=== PATIENT | male | born 1955 | race Hispanic/Latino ===

== ENCOUNTER 2017-10-26 10:56 | Emergency (ER) | payer OTHER ==
[~2017-10-26 10:56] MED LIST: ALLO300T2 PO; ATOR40TA71 PO; GLIP5TAB11 PO; LISI1TAB13 PO; METF500T6 PO
[2017-10-26] MEDS ORDERED: METHYLPREDNISOLONE SOD SUCC 40MG/ML 1ML ONE (11:43)
[2017-10-26 11:52] LABS: BASOPHILS % (AUTO) 0.5 % (0.0-5.0); EOSINOPHILS % (AUTO) 2.7 % (0.0-8.0); HEMATOCRIT 33.9 % (42-54); LYMPHOCYTES % (AUTO) 14.1 % (21.0-51.0); MEAN CORPUSCULAR HEMOGLOBIN 30.3 pg (27.0-33.0); MEAN CORPUSCULAR HGB CONC 33.5 g/dL (32.0-36.0); MEAN CORPUSCULAR VOLUME 90.6 fL (79-99); MONOCYTES % (AUTO) 9.6 % (3.0-13.0); NEUTROPHILS % (AUTO) 73.1 % (40.0-77.0); PLATELET COUNT (AUTO) 229 K/uL (130-400); RED BLOOD CELL COUNT(AUTO) 3.74 MIL/uL (4.50-6.20); RED CELL DISTRIBUTION WIDTH 15.5 % (11.0-15.5); WHITE BLOOD COUNT (AUTO) 9.1 K/uL (4.8-10.8)
[2017-10-26 12:04] LABS: CREATININE 1.8 mg/dL (0.5-1.5)
[2017-10-26 12:09] LABS: ALBUMIN 3.9 g/dL (3.5-5.0); BILIRUBIN,TOTAL 0.4 mg/dL (0.2-1.0); TOTAL PROTEIN, SERUM 7.6 g/dL (6.0-8.3)
[2017-10-26] MEDS ORDERED: IPRATROPIUM/ALBUTEROL SULFATE 3 ML SOLUTION IH ONE (12:26)
== END 2017-10-26 14:57 | disposition home or self-care (01) ==
LOC: EDH 10:56
DX: J45.41 Moderate persistent asthma with (acute) exacerbation (principal); E11.9 Type 2 diabetes mellitus without complications; I10 Essential (primary) hypertension; J45.909 Unspecified asthma, uncomplicated; Z98.890 Other specified postprocedural states
CPT/HCPCS: 36415; 71046; 80053; 85025; 87804 ×2; 94640; 96374; 99285; J2920

== ENCOUNTER 2017-10-29 23:36 | Emergency (ER) | payer OTHER ==
[2017-10-29] MEDS ORDERED: IPRATROPIUM/ALBUTEROL SULFATE 3 ML SOLUTION IH ONE (23:51)
[2017-10-30 00:03] LABS: RAPID GROUP A STREP NEGATIVE (NEGATIVE)
[2017-10-30] MEDS ORDERED: AZITHROMYCIN 250 MG TABLET PO ONE (01:45)
[2017-10-30] MEDS ORDERED: OSELTAMIVIR PHOSPHATE 75 MG CAP ONE (01:46)
[2017-10-30] MEDS ORDERED: IPRATROPIUM/ALBUTEROL SULFATE 3 ML SOLUTION IH ONE (01:51)
== END 2017-10-30 02:25 | disposition home or self-care (01) ==
LOC: EDH 23:36
DX: J20.9 Acute bronchitis, unspecified (principal); J45.909 Unspecified asthma, uncomplicated; J09.X2 Influenza due to identified novel influenza A virus with other respiratory manifestations; I10 Essential (primary) hypertension; E11.9 Type 2 diabetes mellitus without complications
CPT/HCPCS: 71046; 87804; 87880; 94640

== ENCOUNTER 2017-10-30 03:42 | Inpatient (IN) | payer OTHER ==
[~2017-10-30] VITALS: Ht 170.2 cm; Wt 100.8 kg
[2017-10-30] VITALS (9 sets, daily range): BP systolic 103–154; BP diastolic 50–83
[2017-10-30] MEDS ORDERED: IPRATROPIUM/ALBUTEROL SULFATE 3 ML SOLUTION IH ONE (03:55)
[2017-10-30] MEDS ORDERED: METHYLPREDNISOLONE SOD SUCC 125MG/2ML VIAL ONE (04:06)
[2017-10-30] MEDS ORDERED: SODIUM CHLORIDE 0.9% 1000ML 2,000 ML IV ONE (04:06)
[2017-10-30 04:14] LABS: BASOPHILS % (AUTO) 0.1 % (0.0-5.0); HEMATOCRIT 37.3 % (42-54); LYMPHOCYTES % (AUTO) 8.9 % (21.0-51.0); MEAN CORPUSCULAR HEMOGLOBIN 29.2 pg (27.0-33.0); MEAN CORPUSCULAR HGB CONC 32.8 g/dL (32.0-36.0); MEAN CORPUSCULAR VOLUME 89.1 fL (79-99); MONOCYTES % (AUTO) 6.6 % (3.0-13.0); NEUTROPHILS % (AUTO) 84.4 % (40.0-77.0); PLATELET COUNT (AUTO) 289 K/uL (130-400); RED BLOOD CELL COUNT(AUTO) 4.19 MIL/uL (4.50-6.20); RED CELL DISTRIBUTION WIDTH 15.3 % (11.0-15.5)
[2017-10-30 04:24] LABS: CARBON DIOXIDE 23 mmol/L (21-32); CHLORIDE 99 mmol/L (101-111); GLOMERULAR FILTR. RATE CALC 36 mL/min (>60); GLUCOSE,RANDOM 158 mg/dL (70-105); POTASSIUM 3.8 mmol/L (3.5-5.1); SODIUM SERUM 137 mmol/L (136-145); UREA NITROGEN, BLOOD 37 mg/dL (7-18)
[2017-10-30 04:39] LABS: ALANINE AMINOTRANSFERASE 33 U/L (12-78); ALBUMIN 3.9 g/dL (3.5-5.0); ASPARTATE AMINOTRANSFERASE 21 U/L (10-37); BILIRUBIN,TOTAL 0.3 mg/dL (0.2-1.0); CREATINE KINASE, TOTAL 187 U/L (21-232); MYOGLOBIN 113 ng/mL (10-92); TOTAL PROTEIN, SERUM 7.7 g/dL (6.0-8.3); TROPONIN I < 0.04 ng/mL (0.00-0.06)
[2017-10-30] MEDS ORDERED: ALBUTEROL SULFATE 0.083% 2.5 MG/3 ML INH IH ONE ×2 (04:54→11:30)
[2017-10-30 05:00] LABS: INR 0.9 (0.85-1.15); PARTIAL THROMBOPLASTIN TIME 23.2 SEC (26.3-35.5); PROTHROMBIN TIME 9.5 SEC (9.6-11.6)
[2017-10-30 05:45] LABS: ABG BASE EXCESS -4.6 mmol/L (-2.0-3.0); ABG HCO3 18.2 mmol/L (21.0-28.0); ABG OXYGEN SATURATION 88.2 % (95.0-99.0); ABG PCO2 28 mmHg (35-48)
[2017-10-30] MEDS ORDERED: DiphenhydrAMINE HCL 50 MG/ML VIAL ONE (05:53)
[2017-10-30] MEDS ORDERED: ONDANSETRON HCL 4 MG/2 ML VIAL ONE (05:53)
[2017-10-30] MEDS ORDERED: MORPHINE SULFATE 4 MG/1ML SYG ONE (06:58)
[2017-10-30] MEDS ORDERED: CEFTRIAXONE SODIUM 1 GM ONE (07:51)
[2017-10-30] MEDS ORDERED: KETOROLAC TROMETHAMINE 30MG/ML ONE (07:52)
[2017-10-30] MEDS ORDERED: SODIUM CHLORIDE 0.9% 1000ML 1,000 ML IV ONE (09:21)
[2017-10-30] MEDS ORDERED: POTASSIUM CHLORIDE 20MEQ/100ML 100 ML IV ONE (09:22)
[2017-10-30] MEDS ORDERED: METHYLPREDNISOLONE SOD SUCC 40MG/ML 1ML ONE (11:12)
[2017-10-30] MEDS ORDERED: IPRATROPIUM 0.5 MG/2.5 ML INH IH ONE (11:30)
[2017-10-30] MEDS ORDERED: ETOMIDATE 2 MG/ML 10 ML VIAL IVP ONE (12:00)
[2017-10-30] MEDS ORDERED: ROCURONIUM BROMIDE 10MG/1ML 5ML VL IV ONE (12:00)
[2017-10-30] MEDS ORDERED: HYDROMORPHONE 1 MG/1 ML AMP ONE (13:37)
[2017-10-30] MEDS ORDERED: FAMOTIDINE/PF 20 MG/2 ML VIAL IV ONE (13:37)
[2017-10-30 14:10] LABS: APPEARANCE,URINE Clear (CLEAR); BILIRUBIN,URINE Negative (NEGATIVE); COLOR,URINE Yellow (YELLOW); GLUCOSE, URINE (UA) Negative (NEGATIVE); KETONES,URINE Negative (NEGATIVE); LEUKOCYTE ESTERASE ,URINE Negative (NEGATIVE); NITRATE,URINE Negative (NEGATIVE); OCCULT BLOOD,URINE Negative (NEGATIVE); PROTEIN,URINE Trace (NEGATIVE); UROBILINOGEN,URINE 0.2 mg/dL (0.2-1.0)
[2017-10-30 14:14] LABS: AMORPHOUS SEDIMENT,UR Few /LPF (None Seen); BACTERIA,URINE Rare /HPF (None Seen); RBC,URINE 0-1 /HPF (0-1); WBC,URINE None Seen /HPF (0-1)
[2017-10-30] MEDS ORDERED: POTASSIUM CHLORIDE 20 MEQ ERTAB PO PRN (15:30)
[2017-10-30] MEDS ORDERED: LIDOCAINE HCL-MPF 1% 2ML VIAL IVP PRN (15:30)
[2017-10-30] MEDS ORDERED: PHARMACY COMMUNICATION MISC SCH ×3 (15:30)
[2017-10-30] MEDS ORDERED: POTASSIUM CHLORIDE 10% ELIXIR 20 MEQ/15 ML UDCUP PO PRN (15:30)
[2017-10-30] MEDS: NS-20 MEQ KCL 1000ML 1,000 ML IV SCH (15:45)
[2017-10-30] MEDS ORDERED: DEXTROSE 50%-WATER 50 ML DISP.SYRIN IV PRN (15:45)
[2017-10-30] MEDS ORDERED: COMPOUND PO MISCELLANEOUS 1 EACH MISC MISC PRN (15:45)
[2017-10-30] MEDS ORDERED: GLUCAGON 1MG KIT 1 MG ML IM PRN (15:45)
[2017-10-30] MEDS: ZOSYN 3.375GM+NS 50ML 50 ML IV SCH ×2 (16:38→20:35)
[2017-10-30] MEDS: METHYLPREDNISOLONE SOD SUCC 40MG/ML 1ML IVP SCH ×2 (16:38→23:03)
[2017-10-30] MEDS: LEVOFLOXACIN 500 MG/D5W 100 ML 100 ML IV SCH (16:38)
[2017-10-30] MEDS: INSULIN LISPRO 100 UNIT/ML 3ML SQ SCH ×2 (16:39→22:12)
[2017-10-30] MEDS ORDERED: FUROSEMIDE 10 MG/ML 2ML VIAL IV SCH (17:15)
[2017-10-30] MEDS ORDERED: HYDRALAZINE HCL 20 MG/ML VIAL IV PRN (17:15)
[2017-10-30] MEDS: MORPHINE SULFATE 4 MG/1ML SYG IVP PRN (17:33)
[2017-10-30] MEDS ORDERED: BUDESONIDE 0.5 MG/2 ML INH IH ONE (18:10)
[2017-10-30] MEDS: IPRATROPIUM/ALBUTEROL SULFATE 3 ML SOLUTION IH SCH ×2 (18:26→22:02)
[2017-10-30] MEDS: BUDESONIDE 0.5 MG/2 ML INH IH SCH (18:50)
[2017-10-30] MEDS: SIMETHICONE 80 MG TAB.CHEW PO PRN (20:34)
[2017-10-30] MEDS: TRAMADOL HCL 50 MG TABLET PO PRN (20:34)
[2017-10-30] MEDS: OSELTAMIVIR SUSP 15 MG/ML (6 CAPS/29ML) PO SCH ×2 (20:35)
[2017-10-31] VITALS (23 sets, daily range): BP systolic 79–169; BP diastolic 31–114
[2017-10-31] MEDS: ACETAMINOPHEN 325 MG TAB PO PRN (00:48)
[2017-10-31] MEDS: IPRATROPIUM/ALBUTEROL SULFATE 3 ML SOLUTION IH SCH ×6 (01:30→23:29)
[2017-10-31] MEDS: NS-20 MEQ KCL 1000ML 1,000 ML IV SCH ×2 (02:46→18:25)
[2017-10-31] MEDS: ZOSYN 3.375GM+NS 50ML 50 ML IV SCH ×3 (05:28→21:28)
[2017-10-31] MEDS: SIMETHICONE 80 MG TAB.CHEW PO PRN (05:46)
[2017-10-31] MEDS: TRAMADOL HCL 50 MG TABLET PO PRN (05:51)
[2017-10-31 06:27] LABS: CREATININE 4.7 mg/dL (0.5-1.5); POTASSIUM 5.5 mmol/L (3.5-5.1)
[2017-10-31] MEDS: METHYLPREDNISOLONE SOD SUCC 40MG/ML 1ML IVP SCH ×2 (06:35→15:45)
[2017-10-31] MEDS: INSULIN LISPRO 100 UNIT/ML 3ML SQ SCH ×4 (06:38→21:00)
[2017-10-31] MEDS: BUDESONIDE 0.5 MG/2 ML INH IH SCH ×2 (07:26→21:15)
[2017-10-31] MEDS: FAMOTIDINE/PF 20 MG/2 ML VIAL IV SCH (08:44)
[2017-10-31] MEDS: OSELTAMIVIR SUSP 15 MG/ML (6 CAPS/29ML) PO SCH ×4 (08:44→21:28)
[2017-10-31] MEDS ORDERED: CEFTRIAXONE SODIUM 2 GM VIAL IVP SCH (09:00)
[2017-10-31] MEDS ORDERED: WATER FOR INJECTION,STERILE 20 ML VIAL IJ SCH (09:00)
[2017-10-31 15:15] LABS: ABG BASE EXCESS -13.6 mmol/L (-2.0-3.0); ABG HCO3 12.8 mmol/L (21.0-28.0); ABG OXYGEN SATURATION 96.9 % (95.0-99.0); ABG PCO2 32 mmHg (35-48)
[2017-10-31] MEDS ORDERED: FUROSEMIDE 10 MG/ML 4ML VIAL IV SCH (15:30)
[2017-10-31] MEDS ORDERED: VANCOMYCIN PROTOCOL PER PHARMACY IV SCH (15:30)
[2017-10-31] MEDS ORDERED: SODIUM BICARB 50MEQ 50ML VIAL IV ONE ×2 (15:30→23:15)
[2017-10-31] MEDS: LEVOFLOXACIN 500 MG/D5W 100 ML 100 ML IV SCH (15:45)
[2017-10-31] MEDS ORDERED: COMPOUND IV REFRIGERATED 1 EACH IVSOLN MISC PRN (15:45)
[2017-10-31] MEDS ORDERED: VANCOMYCIN 1.5 GM in SODIUM CHLORIDE 0.9% 250 ML IV SCH (16:00)
[2017-10-31] MEDS ORDERED: VANCOMYCIN 1GM+NS 250ML 250 ML IV SCH (17:00)
[2017-10-31] MEDS: FUROSEMIDE 100 MG in SODIUM CHLORIDE 0.9% 90 ML IV SCH (17:09)
[2017-10-31] MEDS: SODIUM BICARB 8.4% 50ML SYRING 150 MEQ in DEXTROSE 5%-WATER 1,000 ML IV SCH (19:43)
[2017-10-31] MEDS: METOLAZONE 2.5 MG TABLET PO SCH (23:15)
[2017-10-31] MEDS ORDERED: METOLAZONE 2.5 MG TABLET ONE (23:17)
[2017-10-31] MEDS ORDERED: SODIUM BICARB 50MEQ 50ML VIAL ONE (23:17)
[2017-11-01] VITALS (25 sets, daily range): BP systolic 82–146; BP diastolic 37–89
[2017-11-01] MEDS: METOLAZONE 2.5 MG TABLET PO SCH ×4 (00:14→22:00)
[2017-11-01 00:21] LABS: ABG BASE EXCESS -7.1 mmol/L (-2.0-3.0); ABG HCO3 18.1 mmol/L (21.0-28.0); ABG OXYGEN SATURATION 95.5 % (95.0-99.0); ABG PCO2 35 mmHg (35-48)
[2017-11-01] MEDS: METHYLPREDNISOLONE SOD SUCC 40MG/ML 1ML IVP SCH ×3 (00:59→15:02)
[2017-11-01] MEDS: IPRATROPIUM/ALBUTEROL SULFATE 3 ML SOLUTION IH SCH ×6 (02:59→22:11)
[2017-11-01 04:22] LABS: HEMATOCRIT 29.2 % (42-54); MEAN CORPUSCULAR HEMOGLOBIN 30.4 pg (27.0-33.0); MEAN CORPUSCULAR VOLUME 89.3 fL (79-99); NUCLEATED RED BLOOD CELLS 0.1 % (0.0-0.19); PLATELET COUNT (AUTO) 145 K/uL (130-400); RED BLOOD CELL COUNT(AUTO) 3.27 MIL/uL (4.50-6.20); RED CELL DISTRIBUTION WIDTH 15.5 % (11.0-15.5); WHITE BLOOD COUNT (AUTO) 12.8 K/uL (4.8-10.8)
[2017-11-01 04:29] LABS: INR 1.09 (0.85-1.15); PARTIAL THROMBOPLASTIN TIME 45.6 SEC (26.3-35.5); PROTHROMBIN TIME 11.4 SEC (9.6-11.6)
[2017-11-01 04:33] LABS: B-TYPE NATRIURETIC PEPTIDE 137 pg/mL (0-100)
[2017-11-01 04:37] LABS: BILIRUBIN,TOTAL 0.9 mg/dL (0.2-1.0); CREATININE 6.1 mg/dL (0.5-1.5); TOTAL PROTEIN, SERUM 5.8 g/dL (6.0-8.3)
[2017-11-01 04:41] LABS: BAND NEUTROPHILS % (MANUAL) 40 % (0-2); LYMPHOCYTES % (MANUAL) 5 % (22-44); MAN.DIFF COMMENT-IMPRESSION MANUAL DIFFERENTIAL; MONOCYTES % (MANUAL) 16 % (2-9); PLATELET MORPHOLOGY COMMENT ADEQUATE; SEGMENTED NEUTROPHILS % 39 % (40-70)
[2017-11-01] MEDS: MORPHINE SULFATE 4 MG/1ML SYG IVP PRN (04:59)
[2017-11-01] MEDS: SODIUM BICARB 8.4% 50ML SYRING 150 MEQ in DEXTROSE 5%-WATER 1,000 ML IV SCH ×3 (06:15→16:36)
[2017-11-01] MEDS: BUDESONIDE 0.5 MG/2 ML INH IH SCH ×2 (06:35→18:26)
[2017-11-01] MEDS: INSULIN LISPRO 100 UNIT/ML 3ML SQ SCH ×4 (06:43→21:00)
[2017-11-01] MEDS: NS-20 MEQ KCL 1000ML 1,000 ML IV SCH ×2 (07:45→21:05)
[2017-11-01] MEDS: ZOSYN 3.375GM+NS 50ML 50 ML IV SCH ×2 (08:48→21:00)
[2017-11-01] MEDS: FAMOTIDINE/PF 20 MG/2 ML VIAL IV SCH (08:48)
[2017-11-01] MEDS ORDERED: NOREPINEPHRINE 4MG/NS 250ML 250 ML IV SCH (10:00)
[2017-11-01] MEDS: OSELTAMIVIR SUSP 15 MG/ML (6 CAPS/29ML) PO SCH ×4 (10:15→21:00)
[2017-11-01 10:35] LABS: HEMOGLOBIN A1C 7.1 % (4.0-6.0)
[2017-11-01 11:15] LABS: FERRITIN 703 ng/mL (30-400); IRON, SERUM 9 mcg/dL (65-175)
[2017-11-01] MEDS ORDERED: 0.9% SODIUM CHLORIDE 250 ML IV BAG IV PRN (12:00)
[2017-11-01] MEDS ORDERED: HEPARIN SODIUM 5000UNIT/ML 1ML VIAL IJ PRN (12:00)
[2017-11-01] MEDS ORDERED: LIDOCAINE HCL 2% 20ML ONE (13:23)
[2017-11-01] MEDS ORDERED: SODIUM BICARB 50MEQ 50ML VIAL ONE (13:23)
[2017-11-01] MEDS: LEVOFLOXACIN 500 MG/D5W 100 ML 100 ML IV SCH (15:02)
[2017-11-01] MEDS: FUROSEMIDE 100 MG in SODIUM CHLORIDE 0.9% 90 ML IV SCH (16:36)
[2017-11-01] MEDS ORDERED: AMIODARONE HCL 900 MG in DEXTROSE 5%-WATER 500 ML IV SCH (18:15)
[2017-11-01] MEDS ORDERED: LORAZEPAM 2 MG/ML 1 ML VIAL IVP PRN (18:15)
[2017-11-01] MEDS ORDERED: AMIODARONE HCL 150 MG in DEXTROSE 5%-WATER 100 ML IV SCH (18:30)
[2017-11-01] MEDS ORDERED: SODIUM CHLORIDE 0.9% IV SCH (18:38)
[2017-11-01] MEDS ORDERED: AMIODARONE HCL IV SCH (18:38)
[2017-11-01 19:09] LABS: CREATINE KINASE MB 15.4 ng/mL (0.5-3.6); TROPONIN I 0.18 ng/mL (0.00-0.06)
[2017-11-02] VITALS (24 sets, daily range): BP systolic 87–175; BP diastolic 34–103
[2017-11-02] MEDS: MORPHINE SULFATE 4 MG/1ML SYG IVP PRN (00:06)
[2017-11-02] MEDS: METHYLPREDNISOLONE SOD SUCC 40MG/ML 1ML IVP SCH ×3 (00:34→15:13)
[2017-11-02] MEDS: ZOSYN 3.375GM+NS 50ML 50 ML IV SCH ×3 (00:34→20:58)
[2017-11-02 01:28] LABS: CREATINE KINASE MB 17.5 ng/mL (0.5-3.6); TROPONIN I 0.59 ng/mL (0.00-0.06)
[2017-11-02] MEDS: FUROSEMIDE 100 MG in SODIUM CHLORIDE 0.9% 90 ML IV SCH (02:00)
[2017-11-02] MEDS: IPRATROPIUM/ALBUTEROL SULFATE 3 ML SOLUTION IH SCH ×6 (02:14→21:51)
[2017-11-02] MEDS: SODIUM BICARB 8.4% 50ML SYRING 150 MEQ in DEXTROSE 5%-WATER 1,000 ML IV SCH (04:50)
[2017-11-02 04:56] LABS: MEAN CORPUSCULAR HEMOGLOBIN 29.1 pg (27.0-33.0); MEAN CORPUSCULAR HGB CONC 33.2 g/dL (32.0-36.0); MEAN CORPUSCULAR VOLUME 87.6 fL (79-99); NUCLEATED RED BLOOD CELLS 0.2 % (0.0-0.19); PLATELET COUNT (AUTO) 132 K/uL (130-400); RED CELL DISTRIBUTION WIDTH 15.4 % (11.0-15.5); WHITE BLOOD COUNT (AUTO) 26.7 K/uL (4.8-10.8)
[2017-11-02 05:08] LABS: CREATININE 5.4 mg/dL (0.5-1.5); MAGNESIUM 1.4 mg/dL (1.80-2.40); POTASSIUM 4.6 mmol/L (3.5-5.1)
[2017-11-02 06:32] LABS: BAND NEUTROPHILS % (MANUAL) 11 % (0-2); LYMPHOCYTES % (MANUAL) 4 % (22-44); METAMYELOCYTES % 1 % (0-0); MONOCYTES % (MANUAL) 1 % (2-9); PLATELET MORPHOLOGY COMMENT ADEQUATE; REACTIVE LYMPHOCYTES 1 % (0-0); SEGMENTED NEUTROPHILS % 82 % (40-70)
[2017-11-02 06:33] LABS: MAN.DIFF COMMENT-IMPRESSION MANUAL DIFFERENTIAL
[2017-11-02] MEDS: BUDESONIDE 0.5 MG/2 ML INH IH SCH (06:54)
[2017-11-02 06:56] LABS: CREATINE KINASE MB 12.3 ng/mL (0.5-3.6); TROPONIN I 0.55 ng/mL (0.00-0.06)
[2017-11-02] MEDS: INSULIN LISPRO 100 UNIT/ML 3ML SQ SCH ×4 (07:30→21:04)
[2017-11-02] MEDS: NS-20 MEQ KCL 1000ML 1,000 ML IV SCH (07:31)
[2017-11-02] MEDS ORDERED: SODIUM CHLORIDE 0.9% 500ML 500 ML IV ONE (07:45)
[2017-11-02] MEDS ORDERED: MAGNESIUM 2GM PREMIX 50ML 50 ML IV PRN (08:15)
[2017-11-02] MEDS ORDERED: FENTANYL CITRATE PF 50 MCG/1 ML 2ML VIAL IVP SCH (09:00)
[2017-11-02] MEDS ORDERED: MIDAZOLAM HCL 1 MG/ML 2ML VIAL IVP SCH (09:00)
[2017-11-02] MEDS: OSELTAMIVIR SUSP 15 MG/ML (6 CAPS/29ML) PO SCH ×2 (09:00)
[2017-11-02] MEDS ORDERED: ETOMIDATE 2 MG/ML 10 ML VIAL IVP SCH (09:00)
[2017-11-02] MEDS: MIDAZOLAM 100MG-0.9% NS 100ML 100 ML IV PRN (09:22)
[2017-11-02] MEDS: FENTANYL 2500MCG+NS 250ML 250 ML IV PRN (09:22)
[2017-11-02] MEDS: FAMOTIDINE/PF 20 MG/2 ML VIAL IV SCH (10:19)
[2017-11-02 10:32] LABS: ABG BASE EXCESS -2.7 mmol/L (-2.0-3.0); ABG HCO3 24.9 mmol/L (21.0-28.0); ABG OXYGEN SATURATION 99.7 % (95.0-99.0); ABG PCO2 54 mmHg (35-48)
[2017-11-02] MEDS: ALBUMIN (HUMAN) 25% 100 ML IV PRN (11:51)
[2017-11-02 12:09] LABS: HEPATITIS Bs ANTIGEN SCREEN P Negative (Negative)
[2017-11-02] MEDS ORDERED: LORAZEPAM 2 MG/ML 1 ML VIAL IVP PRN (12:15)
[2017-11-02] MEDS ORDERED: NOREPINEPHRINE BITARTRATE 8 MG in DEXTROSE 5%-WATER 250 ML IV SCH (12:15)
[2017-11-02] MEDS: PHENYLEPHRINE HCL 50 MG in SODIUM CHLORIDE 0.9% 250 ML IV SCH (12:26)
[2017-11-02] MEDS: LEVOFLOXACIN 500 MG/D5W 100 ML 100 ML IV SCH (15:13)
[2017-11-02] MEDS: VANCOMYCIN 1.5 GM in SODIUM CHLORIDE 0.9% 250 ML IV SCH (17:26)
[2017-11-03] VITALS (24 sets, daily range): BP systolic 92–163; BP diastolic 59–93
[2017-11-03] MEDS: OSELTAMIVIR SUSP 15 MG/ML (6 CAPS/29ML) PO SCH ×6 (01:04→20:17)
[2017-11-03] MEDS: METHYLPREDNISOLONE SOD SUCC 40MG/ML 1ML IVP SCH ×3 (01:05→18:31)
[2017-11-03] MEDS: METOLAZONE 2.5 MG TABLET PO SCH ×2 (01:12→23:15)
[2017-11-03] MEDS: IPRATROPIUM/ALBUTEROL SULFATE 3 ML SOLUTION IH SCH ×6 (02:01→22:35)
[2017-11-03 03:36] LABS: HEMATOCRIT 24.8 % (42-54); MEAN CORPUSCULAR HGB CONC 34.2 g/dL (32.0-36.0); MEAN CORPUSCULAR VOLUME 87.6 fL (79-99); NUCLEATED RED BLOOD CELLS 0.8 % (0.0-0.19); PLATELET COUNT (AUTO) 139 K/uL (130-400); RED BLOOD CELL COUNT(AUTO) 2.83 MIL/uL (4.50-6.20)
[2017-11-03 03:50] LABS: CREATININE 5.4 mg/dL (0.5-1.5); MAGNESIUM 1.9 mg/dL (1.80-2.40); POTASSIUM 4.9 mmol/L (3.5-5.1)
[2017-11-03 03:51] LABS: WHITE BLOOD COUNT (AUTO) 36.2 K/uL (4.8-10.8)
[2017-11-03 03:55] LABS: BAND NEUTROPHILS % (MANUAL) 3 % (0-2); LYMPHOCYTES % (MANUAL) 4 % (22-44); MAN.DIFF COMMENT-IMPRESSION MANUAL DIFFERENTIAL; MONOCYTES % (MANUAL) 1 % (2-9); PLATELET MORPHOLOGY COMMENT ADEQUATE; SEGMENTED NEUTROPHILS % 92 % (40-70)
[2017-11-03] MEDS: MIDAZOLAM 100MG-0.9% NS 100ML 100 ML IV PRN (06:06)
[2017-11-03] MEDS: INSULIN LISPRO 100 UNIT/ML 3ML SQ SCH ×4 (06:09→18:44)
[2017-11-03] MEDS: BUDESONIDE 0.5 MG/2 ML INH IH SCH ×2 (06:33→21:00)
[2017-11-03] MEDS: PHENYLEPHRINE HCL 50 MG in SODIUM CHLORIDE 0.9% 250 ML IV SCH (09:48)
[2017-11-03] MEDS: FAMOTIDINE/PF 20 MG/2 ML VIAL IV SCH (10:02)
[2017-11-03] MEDS: ZOSYN 3.375GM+NS 50ML 50 ML IV SCH (10:05)
[2017-11-03] MEDS: FENTANYL 2500MCG+NS 250ML 250 ML IV PRN (10:35)
[2017-11-03] MEDS: FLUCONAZOLE 400 MG/NS 200 ML 200 ML IV SCH (18:31)
[2017-11-03] MEDS: LEVOFLOXACIN 500 MG/D5W 100 ML 100 ML IV SCH (18:32)
[2017-11-03] MEDS: WATER FOR INJECTION,STERILE 20 ML VIAL IJ SCH ×2 (18:32→19:30)
[2017-11-03] MEDS: PIPERACILLIN SODIUM/TAZOBACTAM 3.375 GM VIAL IV SCH (18:32)
[2017-11-03] MEDS: HEPARIN SODIUM 5000UNIT/ML 1ML VIAL IJ PRN (18:45)
[2017-11-04] VITALS (24 sets, daily range): BP systolic 87–127; BP diastolic 33–79
[2017-11-04] MEDS: METHYLPREDNISOLONE SOD SUCC 40MG/ML 1ML IVP SCH ×4 (00:13→23:31)
[2017-11-04] MEDS: PIPERACILLIN SODIUM/TAZOBACTAM 3.375 GM VIAL IV SCH ×4 (00:18→23:32)
[2017-11-04] MEDS: INSULIN LISPRO 100 UNIT/ML 3ML SQ SCH ×4 (00:19→18:05)
[2017-11-04] MEDS: IPRATROPIUM/ALBUTEROL SULFATE 3 ML SOLUTION IH SCH ×6 (01:45→22:59)
[2017-11-04] MEDS: WATER FOR INJECTION,STERILE 20 ML VIAL IJ SCH ×4 (03:30→23:32)
[2017-11-04 04:22] LABS: CREATININE 4.9 mg/dL (0.5-1.5); POTASSIUM 4.6 mmol/L (3.5-5.1)
[2017-11-04] MEDS: BUDESONIDE 0.5 MG/2 ML INH IH SCH ×2 (07:15→19:03)
[2017-11-04 07:28] LABS: HEMATOCRIT 24.2 % (42-54); MEAN CORPUSCULAR HEMOGLOBIN 28.7 pg (27.0-33.0); MEAN CORPUSCULAR HGB CONC 32.9 g/dL (32.0-36.0); MEAN CORPUSCULAR VOLUME 87.4 fL (79-99); NUCLEATED RED BLOOD CELLS 0.3 % (0.0-0.19); PLATELET COUNT (AUTO) 134 K/uL (130-400); RED BLOOD CELL COUNT(AUTO) 2.77 MIL/uL (4.50-6.20); RED CELL DISTRIBUTION WIDTH 15.3 % (11.0-15.5); WHITE BLOOD COUNT (AUTO) 29.2 K/uL (4.8-10.8)
[2017-11-04 08:01] LABS: BAND NEUTROPHILS % (MANUAL) 1 % (0-2); LYMPHOCYTES % (MANUAL) 3 % (22-44); MAN.DIFF COMMENT-IMPRESSION MANUAL DIFFERENTIAL; MONOCYTES % (MANUAL) 4 % (2-9); PLATELET MORPHOLOGY COMMENT ADEQUATE; SEGMENTED NEUTROPHILS % 92 % (40-70)
[2017-11-04] MEDS: MIDAZOLAM 100MG-0.9% NS 100ML 100 ML IV PRN (08:51)
[2017-11-04] MEDS: FLUCONAZOLE 400 MG/NS 200 ML 200 ML IV SCH (08:58)
[2017-11-04] MEDS: FAMOTIDINE/PF 20 MG/2 ML VIAL IV SCH (08:59)
[2017-11-04] MEDS: FENTANYL 2500MCG+NS 250ML 250 ML IV PRN (12:05)
[2017-11-04] MEDS: VANCOMYCIN 1.5 GM in SODIUM CHLORIDE 0.9% 250 ML IV SCH (16:08)
[2017-11-04] MEDS: LEVOFLOXACIN 500 MG/D5W 100 ML 100 ML IV SCH (16:09)
[2017-11-04] MEDS: PHENYLEPHRINE HCL 50 MG in SODIUM CHLORIDE 0.9% 250 ML IV SCH (22:03)
[2017-11-04] MEDS: METOLAZONE 2.5 MG TABLET PO SCH (23:15)
[2017-11-05] VITALS (23 sets, daily range): BP systolic 85–166; BP diastolic 49–92
[2017-11-05] MEDS: INSULIN LISPRO 100 UNIT/ML 3ML SQ SCH ×4 (00:48→18:42)
[2017-11-05] MEDS: IPRATROPIUM/ALBUTEROL SULFATE 3 ML SOLUTION IH SCH ×6 (02:20→22:19)
[2017-11-05 04:47] LABS: HEMATOCRIT 24.5 % (42-54); MEAN CORPUSCULAR HEMOGLOBIN 29.1 pg (27.0-33.0); MEAN CORPUSCULAR HGB CONC 32.8 g/dL (32.0-36.0); MEAN CORPUSCULAR VOLUME 88.8 fL (79-99); NUCLEATED RED BLOOD CELLS 0.3 % (0.0-0.19); PLATELET COUNT (AUTO) 157 K/uL (130-400); RED BLOOD CELL COUNT(AUTO) 2.76 MIL/uL (4.50-6.20); RED CELL DISTRIBUTION WIDTH 15.4 % (11.0-15.5)
[2017-11-05 05:23] LABS: CREATININE 7.3 mg/dL (0.5-1.5); PHOSPHORUS 11.4 mg/dL (2.5-4.9); POTASSIUM 5.2 mmol/L (3.5-5.1)
[2017-11-05] MEDS: METHYLPREDNISOLONE SOD SUCC 40MG/ML 1ML IVP SCH ×3 (06:43→23:03)
[2017-11-05] MEDS: ALBUMIN (HUMAN) 25% 100 ML IV PRN (07:50)
[2017-11-05] MEDS: SODIUM CHLORIDE 0.9% 1000ML 1,000 ML IV PRN (09:53)
[2017-11-05] MEDS: FAMOTIDINE/PF 20 MG/2 ML VIAL IV SCH (10:44)
[2017-11-05] MEDS: MEROPENEM 500 MG VIAL IVP SCH (10:44)
[2017-11-05] MEDS: FLUCONAZOLE 400 MG/NS 200 ML 200 ML IV SCH (10:44)
[2017-11-05] MEDS ORDERED: PROPOFOL 1000 MG/100 ML IV PRN (11:30)
[2017-11-05 12:09] LABS: ABG BASE EXCESS -4.1 mmol/L (-2.0-3.0); ABG HCO3 20.2 mmol/L (21.0-28.0); ABG OXYGEN SATURATION 98.2 % (95.0-99.0); ABG PCO2 34 mmHg (35-48)
[2017-11-05] MEDS: LEVOFLOXACIN 500 MG/D5W 100 ML 100 ML IV SCH (15:30)
[2017-11-05] MEDS: BUDESONIDE 0.5 MG/2 ML INH IH SCH (19:17)
[2017-11-05] MEDS: PROPOFOL 1000 MG/100 ML 100 ML IV PRN (20:04)
[2017-11-05] MEDS: METOLAZONE 2.5 MG TABLET PO SCH (23:03)
[2017-11-06] VITALS (24 sets, daily range): BP systolic 92–136; BP diastolic 52–79
[2017-11-06] MEDS: INSULIN LISPRO 100 UNIT/ML 3ML SQ SCH ×5 (00:35→23:50)
[2017-11-06] MEDS: IPRATROPIUM/ALBUTEROL SULFATE 3 ML SOLUTION IH SCH ×6 (01:51→22:10)
[2017-11-06] MEDS: PROPOFOL 1000 MG/100 ML 100 ML IV PRN ×3 (03:06→22:27)
[2017-11-06] MEDS: BUDESONIDE 0.5 MG/2 ML INH IH SCH ×2 (07:25→20:14)
[2017-11-06 08:25] LABS: HEMATOCRIT 27.5 % (42-54); MEAN CORPUSCULAR HEMOGLOBIN 28.6 pg (27.0-33.0); MEAN CORPUSCULAR HGB CONC 32.3 g/dL (32.0-36.0); MEAN CORPUSCULAR VOLUME 88.4 fL (79-99); NUCLEATED RED BLOOD CELLS 0.1 % (0.0-0.19); PLATELET COUNT (AUTO) 217 K/uL (130-400); RED BLOOD CELL COUNT(AUTO) 3.11 MIL/uL (4.50-6.20); RED CELL DISTRIBUTION WIDTH 15.2 % (11.0-15.5)
[2017-11-06 08:27] LABS: WHITE BLOOD COUNT (AUTO) 39.7 K/uL (4.8-10.8)
[2017-11-06 08:46] LABS: CREATININE 6.8 mg/dL (0.5-1.5); MAGNESIUM 2.6 mg/dL (1.80-2.40); PHOSPHORUS 11.4 mg/dL (2.5-4.9); POTASSIUM 4.7 mmol/L (3.5-5.1)
[2017-11-06] MEDS: METHYLPREDNISOLONE SOD SUCC 40MG/ML 1ML IVP SCH ×3 (09:13→23:42)
[2017-11-06] MEDS: FAMOTIDINE/PF 20 MG/2 ML VIAL IV SCH (09:14)
[2017-11-06] MEDS: FLUCONAZOLE 400 MG/NS 200 ML 200 ML IV SCH (09:14)
[2017-11-06] MEDS: MEROPENEM 500 MG VIAL IVP SCH (09:14)
[2017-11-06 09:18] LABS: BAND NEUTROPHILS % (MANUAL) 2 % (0-2); MONOCYTES % (MANUAL) 10 % (2-9); SEGMENTED NEUTROPHILS % 88 % (40-70)
[2017-11-06 09:19] LABS: MAN.DIFF COMMENT-IMPRESSION MANUAL DIFFERENTIAL; PLATELET MORPHOLOGY COMMENT ADEQUATE
[2017-11-06] MEDS: LEVOFLOXACIN 500 MG/D5W 100 ML 100 ML IV SCH (15:03)
[2017-11-06] MEDS: VANCOMYCIN 1.5 GM in SODIUM CHLORIDE 0.9% 250 ML IV SCH (17:36)
[2017-11-06] MEDS: HYDROMORPHONE 1 MG/1 ML AMP IVP PRN (20:33)
[2017-11-06] MEDS: LACTOBACILLUS RHAMNOSUS GG 1 EACH CAP.SPRINK NG SCH (20:33)
[2017-11-07] VITALS (24 sets, daily range): BP systolic 85–134; BP diastolic 51–74
[2017-11-07] MEDS: HYDROMORPHONE 1 MG/1 ML AMP IVP PRN ×2 (00:16→04:27)
[2017-11-07] MEDS: IPRATROPIUM/ALBUTEROL SULFATE 3 ML SOLUTION IH SCH ×6 (02:07→22:07)
[2017-11-07 04:00] LABS: HEMATOCRIT 27.2 % (42-54); MEAN CORPUSCULAR HEMOGLOBIN 28.8 pg (27.0-33.0); MEAN CORPUSCULAR HGB CONC 32.5 g/dL (32.0-36.0); MEAN CORPUSCULAR VOLUME 88.4 fL (79-99); NUCLEATED RED BLOOD CELLS 0.2 % (0.0-0.19); PLATELET COUNT (AUTO) 281 K/uL (130-400); RED BLOOD CELL COUNT(AUTO) 3.07 MIL/uL (4.50-6.20); RED CELL DISTRIBUTION WIDTH 15.2 % (11.0-15.5)
[2017-11-07 04:17] LABS: WHITE BLOOD COUNT (AUTO) 36.9 K/uL (4.8-10.8)
[2017-11-07 04:53] LABS: MAGNESIUM 2.7 mg/dL (1.80-2.40); POTASSIUM 5.2 mmol/L (3.5-5.1)
[2017-11-07 05:16] LABS: CREATININE 8.3 mg/dL (0.5-1.5)
[2017-11-07] MEDS: PROPOFOL 1000 MG/100 ML 100 ML IV PRN ×3 (05:34→17:17)
[2017-11-07 05:40] LABS: PHOSPHORUS 14.1 mg/dL (2.5-4.9)
[2017-11-07] MEDS: INSULIN LISPRO 100 UNIT/ML 3ML SQ SCH ×3 (06:09→23:59)
[2017-11-07] MEDS: BUDESONIDE 0.5 MG/2 ML INH IH SCH ×2 (06:52→18:49)
[2017-11-07] MEDS: LACTOBACILLUS RHAMNOSUS GG 1 EACH CAP.SPRINK NG SCH ×2 (08:47→21:59)
[2017-11-07] MEDS: METHYLPREDNISOLONE SOD SUCC 40MG/ML 1ML IVP SCH ×2 (08:47→21:58)
[2017-11-07] MEDS: FAMOTIDINE/PF 20 MG/2 ML VIAL IV SCH (08:47)
[2017-11-07] MEDS: MEROPENEM 500 MG VIAL IVP SCH (08:47)
[2017-11-07] MEDS: FLUCONAZOLE 400 MG/NS 200 ML 200 ML IV SCH (08:48)
[2017-11-07] MEDS: ALBUMIN (HUMAN) 25% 100 ML IV PRN (13:19)
[2017-11-07] MEDS ORDERED: PHARMACY COMMUNICATION MISC SCH ×2 (14:00→14:45)
[2017-11-07] MEDS: HEPARIN SODIUM 5000UNIT/ML 1ML VIAL IJ PRN (14:31)
[2017-11-07] MEDS: SODIUM CHLORIDE 0.9% 1000ML 1,000 ML IV PRN (14:32)
[2017-11-07] MEDS ORDERED: COMPOUND PO MISCELLANEOUS 1 EACH MISC MISC PRN (14:45)
[2017-11-07] MEDS ORDERED: SEVELAMER HCL 800 MG TABLET ONE (15:33)
[2017-11-07] MEDS: METRONIDAZOLE 500 MG TABLET PO SCH ×2 (15:38→21:59)
[2017-11-07] MEDS: SEVELAMER HCL 800 MG TABLET PO SCH (15:38)
[2017-11-07] MEDS: HEPARIN SODIUM 5000UNIT/ML 1ML VIAL SQ SCH (15:40)
[2017-11-07] MEDS: VANCOMYCIN 250MG/5ML ORAL SOLUTION 40ML PO SCH ×4 (15:41→22:00)
[2017-11-07] MEDS ORDERED: ZINC OXIDE OINT 114 GM TUBE TP SCH (20:22)
[2017-11-07] MEDS ORDERED: ZINC OXIDE OINT 60GM TUBE TP SCH (21:09)
[2017-11-07] MEDS ORDERED: CLOTRIMAZOLE 30 GM CREAM.GM. TP SCH (21:32)
[2017-11-07] MEDS: QUETIAPINE FUMARATE 25 MG TAB PO SCH (21:59)
[2017-11-08] VITALS (24 sets, daily range): BP systolic 111–167; BP diastolic 45–95
[2017-11-08] MEDS: PROPOFOL 1000 MG/100 ML 100 ML IV PRN ×2 (01:31→05:58)
[2017-11-08] MEDS: HEPARIN SODIUM 5000UNIT/ML 1ML VIAL SQ SCH ×2 (01:32→14:22)
[2017-11-08] MEDS: IPRATROPIUM/ALBUTEROL SULFATE 3 ML SOLUTION IH SCH ×6 (01:55→22:05)
[2017-11-08] MEDS: VANCOMYCIN 250MG/5ML ORAL SOLUTION 40ML PO SCH ×8 (03:09→20:46)
[2017-11-08 04:28] LABS: HEMATOCRIT 25.6 % (42-54); MEAN CORPUSCULAR HEMOGLOBIN 29.5 pg (27.0-33.0); MEAN CORPUSCULAR HGB CONC 33.6 g/dL (32.0-36.0); MEAN CORPUSCULAR VOLUME 87.8 fL (79-99); PLATELET COUNT (AUTO) 333 K/uL (130-400); RED BLOOD CELL COUNT(AUTO) 2.92 MIL/uL (4.50-6.20); RED CELL DISTRIBUTION WIDTH 15.3 % (11.0-15.5)
[2017-11-08 04:47] LABS: CREATININE 6.1 mg/dL (0.5-1.5); MAGNESIUM 2.4 mg/dL (1.80-2.40); PHOSPHORUS 10.7 mg/dL (2.5-4.9); POTASSIUM 4.7 mmol/L (3.5-5.1)
[2017-11-08] MEDS: INSULIN LISPRO 100 UNIT/ML 3ML SQ SCH ×3 (05:53→17:46)
[2017-11-08] MEDS: METRONIDAZOLE 500 MG TABLET PO SCH ×3 (05:56→22:01)
[2017-11-08] MEDS: BUDESONIDE 0.5 MG/2 ML INH IH SCH ×2 (06:33→17:51)
[2017-11-08] MEDS: MEROPENEM 500 MG VIAL IVP SCH (08:31)
[2017-11-08] MEDS: QUETIAPINE FUMARATE 25 MG TAB PO SCH (08:32)
[2017-11-08] MEDS: ZINC OXIDE OINT 60GM TUBE TP SCH (08:32)
[2017-11-08] MEDS: FAMOTIDINE/PF 20 MG/2 ML VIAL IV SCH (08:32)
[2017-11-08] MEDS: LACTOBACILLUS RHAMNOSUS GG 1 EACH CAP.SPRINK NG SCH ×2 (08:32→20:44)
[2017-11-08] MEDS: METHYLPREDNISOLONE SOD SUCC 40MG/ML 1ML IVP SCH ×2 (08:32→20:44)
[2017-11-08] MEDS: CLOTRIMAZOLE 30 GM CREAM.GM. TP SCH (08:32)
[2017-11-08] MEDS: SEVELAMER HCL 800 MG TABLET PO SCH ×3 (08:32→17:45)
[2017-11-08] MEDS: FLUCONAZOLE 400 MG/NS 200 ML 200 ML IV SCH (08:33)
[2017-11-08 11:33] LABS: ABG BASE EXCESS -4.3 mmol/L (-2.0-3.0); ABG HCO3 18.6 mmol/L (21.0-28.0); ABG OXYGEN SATURATION 97.4 % (95.0-99.0); ABG PCO2 29 mmHg (35-48)
[2017-11-08] MEDS: INSULIN GLARGINE 100 UNITS/ML 10 ML VIAL SQ SCH (13:15)
[2017-11-08] MEDS ORDERED: QUETIAPINE FUMARATE 25 MG TAB PO ONE (20:02)
[2017-11-08] MEDS ORDERED: QUETIAPINE FUMARATE 25 MG TAB PO SCH (22:00)
[2017-11-08] MEDS: TRAMADOL HCL 50 MG TABLET PO PRN (22:01)
[2017-11-09] VITALS (24 sets, daily range): BP systolic 94–161; BP diastolic 46–74
[2017-11-09] MEDS: INSULIN LISPRO 100 UNIT/ML 3ML SQ SCH ×5 (00:50→23:53)
[2017-11-09] MEDS: IPRATROPIUM/ALBUTEROL SULFATE 3 ML SOLUTION IH SCH ×6 (01:59→22:03)
[2017-11-09] MEDS: HEPARIN SODIUM 5000UNIT/ML 1ML VIAL SQ SCH ×2 (03:23→14:05)
[2017-11-09] MEDS: VANCOMYCIN 250MG/5ML ORAL SOLUTION 40ML PO SCH ×8 (03:24→21:25)
[2017-11-09 03:57] LABS: ABG BASE EXCESS -7.1 mmol/L (-2.0-3.0); ABG HCO3 16.9 mmol/L (21.0-28.0); ABG OXYGEN SATURATION 98.3 % (95.0-99.0); ABG PCO2 31 mmHg (35-48)
[2017-11-09 05:50] LABS: HEMATOCRIT 25.5 % (42-54); MEAN CORPUSCULAR HEMOGLOBIN 28.2 pg (27.0-33.0); MEAN CORPUSCULAR HGB CONC 32.2 g/dL (32.0-36.0); MEAN CORPUSCULAR VOLUME 87.7 fL (79-99); PLATELET COUNT (AUTO) 388 K/uL (130-400); RED BLOOD CELL COUNT(AUTO) 2.91 MIL/uL (4.50-6.20); RED CELL DISTRIBUTION WIDTH 15.1 % (11.0-15.5); WHITE BLOOD COUNT (AUTO) 26.8 K/uL (4.8-10.8)
[2017-11-09 06:02] LABS: CREATININE 7.6 mg/dL (0.5-1.5); POTASSIUM 4.8 mmol/L (3.5-5.1)
[2017-11-09 06:11] LABS: BAND NEUTROPHILS % (MANUAL) 2 % (0-2); LYMPHOCYTES % (MANUAL) 1 % (22-44); MONOCYTES % (MANUAL) 3 % (2-9); SEGMENTED NEUTROPHILS % 94 % (40-70)
[2017-11-09 06:12] LABS: MAN.DIFF COMMENT-IMPRESSION MANUAL DIFFERENTIAL; PLATELET MORPHOLOGY COMMENT ADEQUATE
[2017-11-09] MEDS: BUDESONIDE 0.5 MG/2 ML INH IH SCH ×2 (06:25→16:50)
[2017-11-09] MEDS: METRONIDAZOLE 500 MG TABLET PO SCH ×3 (06:28→22:25)
[2017-11-09] MEDS ORDERED: INSULIN GLARGINE 100 UNITS/ML 10 ML VIAL SQ ONE (08:20)
[2017-11-09] MEDS: LACTOBACILLUS RHAMNOSUS GG 1 EACH CAP.SPRINK NG SCH ×2 (08:23→21:25)
[2017-11-09] MEDS: SEVELAMER HCL 800 MG TABLET PO SCH ×3 (08:23→17:31)
[2017-11-09] MEDS: METHYLPREDNISOLONE SOD SUCC 40MG/ML 1ML IVP SCH ×2 (08:24→21:26)
[2017-11-09] MEDS: FAMOTIDINE/PF 20 MG/2 ML VIAL IV SCH (08:24)
[2017-11-09] MEDS: MEROPENEM 500 MG VIAL IVP SCH (08:24)
[2017-11-09] MEDS: ZINC OXIDE OINT 60GM TUBE TP SCH (08:25)
[2017-11-09] MEDS: FLUCONAZOLE 400 MG/NS 200 ML 200 ML IV SCH (08:25)
[2017-11-09] MEDS: CLOTRIMAZOLE 30 GM CREAM.GM. TP SCH (08:25)
[2017-11-09] MEDS: INSULIN GLARGINE 100 UNITS/ML 10 ML VIAL SQ SCH (08:53)
[2017-11-09] MEDS: QUETIAPINE FUMARATE 25 MG TAB PO PRN (21:26)
[2017-11-10] VITALS (20 sets, daily range): BP systolic 94–150; BP diastolic 48–80
[2017-11-10] MEDS: IPRATROPIUM/ALBUTEROL SULFATE 3 ML SOLUTION IH SCH ×6 (02:17→21:30)
[2017-11-10] MEDS: HEPARIN SODIUM 5000UNIT/ML 1ML VIAL SQ SCH ×2 (02:23→14:15)
[2017-11-10] MEDS: VANCOMYCIN 250MG/5ML ORAL SOLUTION 40ML PO SCH ×6 (02:26→14:14)
[2017-11-10 04:15] LABS: HEMATOCRIT 26.8 % (42-54); MEAN CORPUSCULAR HEMOGLOBIN 29.2 pg (27.0-33.0); MEAN CORPUSCULAR HGB CONC 33.1 g/dL (32.0-36.0); MEAN CORPUSCULAR VOLUME 88.2 fL (79-99); PLATELET COUNT (AUTO) 445 K/uL (130-400); RED BLOOD CELL COUNT(AUTO) 3.04 MIL/uL (4.50-6.20); RED CELL DISTRIBUTION WIDTH 15.2 % (11.0-15.5); WHITE BLOOD COUNT (AUTO) 28.9 K/uL (4.8-10.8)
[2017-11-10 04:49] LABS: POTASSIUM 5.3 mmol/L (3.5-5.1)
[2017-11-10 04:54] LABS: CREATININE 8.4 mg/dL (0.5-1.5)
[2017-11-10 05:29] LABS: MAN.DIFF COMMENT-IMPRESSION MANUAL DIFFERENTIAL; MONOCYTES % (MANUAL) 1 % (2-9); SEGMENTED NEUTROPHILS % 99 % (40-70)
[2017-11-10 05:30] LABS: PLATELET MORPHOLOGY COMMENT ADEQUATE
[2017-11-10] MEDS: INSULIN LISPRO 100 UNIT/ML 3ML SQ SCH ×4 (05:55→21:08)
[2017-11-10] MEDS: METRONIDAZOLE 500 MG TABLET PO SCH ×2 (05:57→20:32)
[2017-11-10] MEDS: BUDESONIDE 0.5 MG/2 ML INH IH SCH ×2 (06:47→20:04)
[2017-11-10] MEDS: ALBUMIN (HUMAN) 25% 100 ML IV PRN (07:43)
[2017-11-10] MEDS: SEVELAMER HCL 800 MG TABLET PO SCH ×3 (07:44→17:06)
[2017-11-10] MEDS: METHYLPREDNISOLONE SOD SUCC 40MG/ML 1ML IVP SCH (09:52)
[2017-11-10] MEDS: FAMOTIDINE/PF 20 MG/2 ML VIAL IV SCH (09:52)
[2017-11-10] MEDS: FLUCONAZOLE 400 MG/NS 200 ML 200 ML IV SCH (09:52)
[2017-11-10] MEDS: MEROPENEM 500 MG VIAL IVP SCH (09:52)
[2017-11-10] MEDS: INSULIN GLARGINE 100 UNITS/ML 10 ML VIAL SQ SCH (09:53)
[2017-11-10] MEDS: LACTOBACILLUS RHAMNOSUS GG 1 EACH CAP.SPRINK NG SCH ×2 (09:54→20:32)
[2017-11-10] MEDS: ZINC OXIDE OINT 60GM TUBE TP SCH (09:58)
[2017-11-10] MEDS: CLOTRIMAZOLE 30 GM CREAM.GM. TP SCH (09:58)
[2017-11-10] MEDS ORDERED: PHARMACY COMMUNICATION MISC SCH (11:15)
[2017-11-10] MEDS: LEVOFLOXACIN 750 MG/D5W 150 ML 150 ML IV SCH (11:39)
[2017-11-10] MEDS: BALSAM PERU/CASTOR OIL 60 GM TUBE TP SCH (11:41)
[2017-11-10] MEDS ORDERED: HEPARIN SODIUM 5000UNIT/ML 1ML VIAL SQ SCH (12:00)
[2017-11-10] MEDS ORDERED: INSULIN LISPRO 100 UNIT/ML 3ML SQ ONE ×2 (12:46→17:16)
[2017-11-10] MEDS: ACETAMINOPHEN 325 MG TAB PO PRN (18:51)
[2017-11-10] MEDS: QUETIAPINE FUMARATE 25 MG TAB PO PRN (21:03)
[2017-11-11] VITALS (13 sets, daily range): BP systolic 107–156; BP diastolic 67–94
[2017-11-11] MEDS: IPRATROPIUM/ALBUTEROL SULFATE 3 ML SOLUTION IH SCH ×5 (02:24→21:36)
[2017-11-11] MEDS: HEPARIN SODIUM 5000UNIT/ML 1ML VIAL SQ SCH ×2 (02:34→13:20)
[2017-11-11] MEDS: INSULIN LISPRO 100 UNIT/ML 3ML SQ SCH ×4 (06:10→22:39)
[2017-11-11] MEDS: METRONIDAZOLE 500 MG TABLET PO SCH ×3 (06:11→21:00)
[2017-11-11] MEDS: BUDESONIDE 0.5 MG/2 ML INH IH SCH ×2 (06:38→18:46)
[2017-11-11] MEDS ORDERED: INSULIN GLARGINE 100 UNITS/ML 10 ML VIAL SQ ONE (08:27)
[2017-11-11] MEDS: LACTOBACILLUS RHAMNOSUS GG 1 EACH CAP.SPRINK NG SCH ×2 (08:30→21:00)
[2017-11-11] MEDS: SEVELAMER HCL 800 MG TABLET PO SCH ×3 (08:30→17:07)
[2017-11-11] MEDS: FLUCONAZOLE 400 MG/NS 200 ML 200 ML IV SCH (08:31)
[2017-11-11] MEDS: FAMOTIDINE/PF 20 MG/2 ML VIAL IV SCH (08:31)
[2017-11-11] MEDS: METHYLPREDNISOLONE SOD SUCC 40MG/ML 1ML IVP SCH (08:31)
[2017-11-11] MEDS: INSULIN GLARGINE 100 UNITS/ML 10 ML VIAL SQ SCH (08:33)
[2017-11-11] MEDS: BALSAM PERU/CASTOR OIL 60 GM TUBE TP SCH (08:36)
[2017-11-11] MEDS: CLOTRIMAZOLE 30 GM CREAM.GM. TP SCH (08:37)
[2017-11-11] MEDS: ZINC OXIDE OINT 60GM TUBE TP SCH (08:37)
[2017-11-11] MEDS: ONDANSETRON HCL 4 MG/2 ML VIAL IVP PRN (13:04)
[2017-11-11] MEDS: SIMETHICONE 80 MG TAB.CHEW PO PRN (13:05)
[2017-11-12] VITALS (19 sets, daily range): BP systolic 98–168; BP diastolic 45–82
[2017-11-12] MEDS: IPRATROPIUM/ALBUTEROL SULFATE 3 ML SOLUTION IH SCH ×6 (02:07→22:21)
[2017-11-12] MEDS: HEPARIN SODIUM 5000UNIT/ML 1ML VIAL SQ SCH ×2 (03:28→13:18)
[2017-11-12] MEDS: METRONIDAZOLE 500 MG TABLET PO SCH ×3 (04:52→22:06)
[2017-11-12] MEDS: BUDESONIDE 0.5 MG/2 ML INH IH SCH ×2 (06:39→18:32)
[2017-11-12] MEDS: INSULIN LISPRO 100 UNIT/ML 3ML SQ SCH ×4 (07:01→21:00)
[2017-11-12] MEDS: SEVELAMER HCL 800 MG TABLET PO SCH ×3 (07:26→16:26)
[2017-11-12] MEDS: METHYLPREDNISOLONE SOD SUCC 40MG/ML 1ML IVP SCH (09:00)
[2017-11-12] MEDS: ZINC OXIDE OINT 60GM TUBE TP SCH (09:59)
[2017-11-12] MEDS: BALSAM PERU/CASTOR OIL 60 GM TUBE TP SCH (10:00)
[2017-11-12] MEDS: CLOTRIMAZOLE 30 GM CREAM.GM. TP SCH (10:00)
[2017-11-12] MEDS: LACTOBACILLUS RHAMNOSUS GG 1 EACH CAP.SPRINK NG SCH ×2 (10:16→22:06)
[2017-11-12] MEDS: INSULIN GLARGINE 100 UNITS/ML 10 ML VIAL SQ SCH (10:20)
[2017-11-12] MEDS: LEVOFLOXACIN 750 MG/D5W 150 ML 150 ML IV SCH (11:48)
[2017-11-12] MEDS: TRAMADOL HCL 50 MG TABLET PO PRN (15:48)
[2017-11-12] MEDS: ONDANSETRON HCL 4 MG/2 ML VIAL IVP PRN ×2 (17:20→23:55)
[2017-11-12] MEDS: CHOLESTYRAMINE PACKET 4 GM PACKET PO SCH (22:42)
[2017-11-12] MEDS: QUETIAPINE FUMARATE 25 MG TAB PO PRN (23:55)
[2017-11-13] VITALS (25 sets, daily range): BP systolic 71–165; BP diastolic 42–118
[2017-11-13] MEDS: SIMETHICONE 80 MG TAB.CHEW PO PRN ×2 (01:35→20:42)
[2017-11-13] MEDS: HEPARIN SODIUM 5000UNIT/ML 1ML VIAL SQ SCH ×2 (01:36→17:13)
[2017-11-13] MEDS: IPRATROPIUM/ALBUTEROL SULFATE 3 ML SOLUTION IH SCH ×6 (01:44→22:18)
[2017-11-13] MEDS: METRONIDAZOLE 500 MG TABLET PO SCH ×3 (05:10→20:40)
[2017-11-13 05:51] LABS: HEMATOCRIT 26.5 % (42-54); MEAN CORPUSCULAR HEMOGLOBIN 30.5 pg (27.0-33.0); MEAN CORPUSCULAR HGB CONC 34.9 g/dL (32.0-36.0); MEAN CORPUSCULAR VOLUME 87.5 fL (79-99); PLATELET COUNT (AUTO) 423 K/uL (130-400); RED BLOOD CELL COUNT(AUTO) 3.02 MIL/uL (4.50-6.20); RED CELL DISTRIBUTION WIDTH 15.3 % (11.0-15.5)
[2017-11-13 05:54] LABS: WHITE BLOOD COUNT (AUTO) 33.3 K/uL (4.8-10.8)
[2017-11-13 06:05] LABS: CREATININE 5.1 mg/dL (0.5-1.5); POTASSIUM 4.2 mmol/L (3.5-5.1)
[2017-11-13] MEDS: BUDESONIDE 0.5 MG/2 ML INH IH SCH ×2 (07:07→18:37)
[2017-11-13] MEDS: INSULIN LISPRO 100 UNIT/ML 3ML SQ SCH ×4 (07:13→20:49)
[2017-11-13] MEDS: PREDNISONE 10 MG TABLET PO SCH (08:31)
[2017-11-13] MEDS: FAMOTIDINE 20MG TAB 20 MG TAB PO SCH (08:31)
[2017-11-13] MEDS: LACTOBACILLUS RHAMNOSUS GG 1 EACH CAP.SPRINK NG SCH ×2 (08:31→20:40)
[2017-11-13] MEDS: CHOLESTYRAMINE PACKET 4 GM PACKET PO SCH ×2 (08:31→20:40)
[2017-11-13] MEDS: SEVELAMER HCL 800 MG TABLET PO SCH ×3 (08:31→17:12)
[2017-11-13] MEDS: INSULIN GLARGINE 100 UNITS/ML 10 ML VIAL SQ SCH (08:32)
[2017-11-13] MEDS: BALSAM PERU/CASTOR OIL 60 GM TUBE TP SCH (08:33)
[2017-11-13] MEDS: ZINC OXIDE OINT 60GM TUBE TP SCH (08:33)
[2017-11-13] MEDS: CLOTRIMAZOLE 30 GM CREAM.GM. TP SCH (08:33)
[2017-11-13] MEDS: METOPROLOL TARTRATE 25 MG TAB PO SCH ×3 (10:43→20:42)
[2017-11-13] MEDS: QUETIAPINE FUMARATE 25 MG TAB PO PRN ×2 (10:43→20:42)
[2017-11-13] MEDS ORDERED: METOPROLOL TARTRATE 25 MG TAB PO SCH (14:00)
[2017-11-13] MEDS: ALBUMIN (HUMAN) 25% 100 ML IV PRN ×2 (15:21→15:27)
[2017-11-13] MEDS: CEFEPIME HCL 1 GM VIAL IVP SCH (20:39)
[2017-11-13] MEDS: FUROSEMIDE 10 MG/ML 4ML VIAL IV SCH (20:48)
[2017-11-13] MEDS ORDERED: CEFEPIME 1GM+NS 50ML 50 ML IV SCH (21:00)
[2017-11-14] VITALS (23 sets, daily range): BP systolic 117–153; BP diastolic 54–108
[2017-11-14] MEDS: IPRATROPIUM/ALBUTEROL SULFATE 3 ML SOLUTION IH SCH ×6 (01:31→22:41)
[2017-11-14] MEDS: HEPARIN SODIUM 5000UNIT/ML 1ML VIAL SQ SCH ×2 (05:02→13:34)
[2017-11-14] MEDS: METRONIDAZOLE 500 MG TABLET PO SCH ×3 (05:02→22:12)
[2017-11-14] MEDS: FUROSEMIDE 10 MG/ML 4ML VIAL IV SCH ×3 (05:03→22:11)
[2017-11-14] MEDS: SIMETHICONE 80 MG TAB.CHEW PO PRN ×2 (05:04→13:28)
[2017-11-14] MEDS: INSULIN LISPRO 100 UNIT/ML 3ML SQ SCH ×4 (06:44→22:15)
[2017-11-14] MEDS: BUDESONIDE 0.5 MG/2 ML INH IH SCH ×2 (06:51→18:41)
[2017-11-14 08:15] LABS: HEMATOCRIT 23.7 % (42-54); MEAN CORPUSCULAR HEMOGLOBIN 28.5 pg (27.0-33.0); MEAN CORPUSCULAR HGB CONC 32.9 g/dL (32.0-36.0); MEAN CORPUSCULAR VOLUME 86.7 fL (79-99); PLATELET COUNT (AUTO) 369 K/uL (130-400); RED BLOOD CELL COUNT(AUTO) 2.73 MIL/uL (4.50-6.20); WHITE BLOOD COUNT (AUTO) 24.2 K/uL (4.8-10.8)
[2017-11-14 08:30] LABS: CREATININE 4.5 mg/dL (0.5-1.5); POTASSIUM 3.3 mmol/L (3.5-5.1)
[2017-11-14 09:12] LABS: LYMPHOCYTES % (MANUAL) 4 % (22-44); MAN.DIFF COMMENT-IMPRESSION MANUAL DIFFERENTIAL; MONOCYTES % (MANUAL) 5 % (2-9); PLATELET MORPHOLOGY COMMENT ADEQUATE; SEGMENTED NEUTROPHILS % 91 % (40-70)
[2017-11-14] MEDS: CEFEPIME HCL 1 GM VIAL IVP SCH ×2 (09:13→22:11)
[2017-11-14] MEDS: PREDNISONE 10 MG TABLET PO SCH (09:13)
[2017-11-14] MEDS: ASPIRIN 81MG TAB.CHEW PO SCH (09:13)
[2017-11-14] MEDS: FAMOTIDINE 20MG TAB 20 MG TAB PO SCH (09:13)
[2017-11-14] MEDS: LACTOBACILLUS RHAMNOSUS GG 1 EACH CAP.SPRINK NG SCH ×2 (09:13→22:12)
[2017-11-14] MEDS: CHOLESTYRAMINE PACKET 4 GM PACKET PO SCH ×2 (09:14→22:11)
[2017-11-14] MEDS: METOPROLOL TARTRATE 25 MG TAB PO SCH ×3 (09:14→22:12)
[2017-11-14] MEDS: SEVELAMER HCL 800 MG TABLET PO SCH ×3 (09:15→16:30)
[2017-11-14] MEDS: INSULIN GLARGINE 100 UNITS/ML 10 ML VIAL SQ SCH (09:18)
[2017-11-14] MEDS: CLOTRIMAZOLE 30 GM CREAM.GM. TP SCH (09:32)
[2017-11-14] MEDS: BALSAM PERU/CASTOR OIL 60 GM TUBE TP SCH (09:32)
[2017-11-14] MEDS: ZINC OXIDE OINT 60GM TUBE TP SCH (09:32)
[2017-11-14] MEDS: POTASSIUM CHLORIDE 20MEQ/100ML 100 ML IV PRN ×2 (12:13→13:28)
[2017-11-15] VITALS (23 sets, daily range): BP systolic 115–162; BP diastolic 43–93
[2017-11-15] MEDS: IPRATROPIUM/ALBUTEROL SULFATE 3 ML SOLUTION IH SCH ×6 (02:09→22:16)
[2017-11-15] MEDS: HEPARIN SODIUM 5000UNIT/ML 1ML VIAL SQ SCH ×2 (02:36→13:42)
[2017-11-15] MEDS: METRONIDAZOLE 500 MG TABLET PO SCH ×3 (05:16→20:32)
[2017-11-15] MEDS: FUROSEMIDE 10 MG/ML 4ML VIAL IV SCH ×3 (05:16→20:31)
[2017-11-15 05:44] LABS: HEMATOCRIT 23.6 % (42-54); MEAN CORPUSCULAR HEMOGLOBIN 29.3 pg (27.0-33.0); MEAN CORPUSCULAR HGB CONC 33.5 g/dL (32.0-36.0); MEAN CORPUSCULAR VOLUME 87.6 fL (79-99); PLATELET COUNT (AUTO) 365 K/uL (130-400); RED BLOOD CELL COUNT(AUTO) 2.69 MIL/uL (4.50-6.20); RED CELL DISTRIBUTION WIDTH 15.3 % (11.0-15.5); WHITE BLOOD COUNT (AUTO) 18.9 K/uL (4.8-10.8)
[2017-11-15 05:51] LABS: BAND NEUTROPHILS % (MANUAL) 12 % (0-2); LYMPHOCYTES % (MANUAL) 18 % (22-44); MAN.DIFF COMMENT-IMPRESSION MANUAL DIFFERENTIAL; PLATELET MORPHOLOGY COMMENT ADEQUATE; SEGMENTED NEUTROPHILS % 70 % (40-70)
[2017-11-15] MEDS: INSULIN LISPRO 100 UNIT/ML 3ML SQ SCH ×4 (05:56→21:00)
[2017-11-15 06:04] LABS: CREATININE 5.2 mg/dL (0.5-1.5); POTASSIUM 3.2 mmol/L (3.5-5.1)
[2017-11-15] MEDS: BUDESONIDE 0.5 MG/2 ML INH IH SCH ×2 (06:16→17:39)
[2017-11-15] MEDS: SEVELAMER HCL 800 MG TABLET PO SCH ×3 (08:21→16:47)
[2017-11-15] MEDS: METOPROLOL TARTRATE 25 MG TAB PO SCH ×3 (08:21→20:32)
[2017-11-15] MEDS: ASPIRIN 81MG TAB.CHEW PO SCH (08:21)
[2017-11-15] MEDS: PREDNISONE 10 MG TABLET PO SCH (08:21)
[2017-11-15] MEDS: FAMOTIDINE 20MG TAB 20 MG TAB PO SCH (08:21)
[2017-11-15] MEDS: LACTOBACILLUS RHAMNOSUS GG 1 EACH CAP.SPRINK NG SCH ×2 (08:21→20:32)
[2017-11-15] MEDS: CHOLESTYRAMINE PACKET 4 GM PACKET PO SCH ×2 (08:22→20:32)
[2017-11-15] MEDS: CEFEPIME HCL 1 GM VIAL IVP SCH ×2 (08:22→20:30)
[2017-11-15] MEDS: INSULIN GLARGINE 100 UNITS/ML 10 ML VIAL SQ SCH (08:40)
[2017-11-15] MEDS: ZINC OXIDE OINT 60GM TUBE TP SCH (08:41)
[2017-11-15] MEDS: BALSAM PERU/CASTOR OIL 60 GM TUBE TP SCH (08:41)
[2017-11-15] MEDS: CLOTRIMAZOLE 30 GM CREAM.GM. TP SCH (08:42)
[2017-11-15] MEDS ORDERED: INSULIN LISPRO 100 UNIT/ML 3ML SQ ONE (11:30)
[2017-11-15] MEDS: CHLORHEXIDINE GLUCONATE 473 ML MOUTHWASH MM SCH (17:35)
[2017-11-15] MEDS: FLUCONAZOLE 200 MG/NS 100 ML 100 ML IV SCH (20:31)
[2017-11-16] VITALS (23 sets, daily range): BP systolic 89–151; BP diastolic 53–98
[2017-11-16] MEDS: CHLORHEXIDINE GLUCONATE 473 ML MOUTHWASH MM SCH ×4 (01:03→19:32)
[2017-11-16] MEDS: HEPARIN SODIUM 5000UNIT/ML 1ML VIAL SQ SCH ×2 (02:18→13:31)
[2017-11-16] MEDS: IPRATROPIUM/ALBUTEROL SULFATE 3 ML SOLUTION IH SCH ×6 (03:01→22:10)
[2017-11-16] MEDS: FUROSEMIDE 10 MG/ML 4ML VIAL IV SCH ×2 (03:54→12:15)
[2017-11-16] MEDS: METRONIDAZOLE 500 MG TABLET PO SCH ×3 (03:54→19:54)
[2017-11-16 03:56] LABS: HEMATOCRIT 25.3 % (42-54); MEAN CORPUSCULAR HEMOGLOBIN 29.4 pg (27.0-33.0); MEAN CORPUSCULAR HGB CONC 33.4 g/dL (32.0-36.0); PLATELET COUNT (AUTO) 345 K/uL (130-400); RED BLOOD CELL COUNT(AUTO) 2.87 MIL/uL (4.50-6.20); RED CELL DISTRIBUTION WIDTH 15.3 % (11.0-15.5); WHITE BLOOD COUNT (AUTO) 17.1 K/uL (4.8-10.8)
[2017-11-16 04:08] LABS: CREATININE 5.4 mg/dL (0.5-1.5); POTASSIUM 3.3 mmol/L (3.5-5.1)
[2017-11-16 04:34] LABS: B-TYPE NATRIURETIC PEPTIDE 41 pg/mL (0-100)
[2017-11-16 04:38] LABS: LYMPHOCYTES % (MANUAL) 3 % (22-44); MONOCYTES % (MANUAL) 1 % (2-9); SEGMENTED NEUTROPHILS % 96 % (40-70)
[2017-11-16 04:40] LABS: MAN.DIFF COMMENT-IMPRESSION MANUAL DIFFERENTIAL; PLATELET MORPHOLOGY COMMENT ADEQUATE
[2017-11-16 04:42] LABS: ABG BASE EXCESS -0.6 mmol/L (-2.0-3.0); ABG HCO3 23.9 mmol/L (21.0-28.0); ABG OXYGEN SATURATION 95.9 % (95.0-99.0); ABG PCO2 39 mmHg (35-48)
[2017-11-16] MEDS: BUDESONIDE 0.5 MG/2 ML INH IH SCH ×2 (07:06→19:32)
[2017-11-16] MEDS: LACTOBACILLUS RHAMNOSUS GG 1 EACH CAP.SPRINK NG SCH ×2 (08:17→19:49)
[2017-11-16] MEDS: CEFEPIME HCL 1 GM VIAL IVP SCH ×2 (08:17→19:48)
[2017-11-16] MEDS: ASPIRIN 81MG TAB.CHEW PO SCH (08:17)
[2017-11-16] MEDS: CHOLESTYRAMINE PACKET 4 GM PACKET PO SCH ×2 (08:17→19:49)
[2017-11-16] MEDS: PREDNISONE 10 MG TABLET PO SCH (08:17)
[2017-11-16] MEDS: FAMOTIDINE 20MG TAB 20 MG TAB PO SCH (08:17)
[2017-11-16] MEDS: SEVELAMER HCL 800 MG TABLET PO SCH ×3 (08:17→17:07)
[2017-11-16] MEDS: METOPROLOL TARTRATE 25 MG TAB PO SCH ×3 (08:17→19:54)
[2017-11-16] MEDS: CLOTRIMAZOLE 30 GM CREAM.GM. TP SCH (08:45)
[2017-11-16] MEDS: ZINC OXIDE OINT 60GM TUBE TP SCH (08:45)
[2017-11-16] MEDS: BALSAM PERU/CASTOR OIL 60 GM TUBE TP SCH (08:45)
[2017-11-16] MEDS: INSULIN LISPRO 100 UNIT/ML 3ML SQ SCH ×4 (09:00→20:52)
[2017-11-16] MEDS: INSULIN GLARGINE 100 UNITS/ML 10 ML VIAL SQ SCH (09:04)
[2017-11-16] MEDS: SIMETHICONE 80 MG TAB.CHEW PO PRN (15:59)
[2017-11-16] MEDS: FLUCONAZOLE 200 MG/NS 100 ML 100 ML IV SCH (19:49)
[2017-11-17] VITALS (24 sets, daily range): BP systolic 91–135; BP diastolic 50–77
[2017-11-17] MEDS: CHLORHEXIDINE GLUCONATE 473 ML MOUTHWASH MM SCH ×4 (00:58→17:23)
[2017-11-17] MEDS: IPRATROPIUM/ALBUTEROL SULFATE 3 ML SOLUTION IH SCH ×6 (01:54→22:14)
[2017-11-17] MEDS: METRONIDAZOLE 500 MG TABLET PO SCH ×3 (03:11→20:27)
[2017-11-17] MEDS: HEPARIN SODIUM 5000UNIT/ML 1ML VIAL SQ SCH ×3 (03:13→16:03)
[2017-11-17] MEDS: SIMETHICONE 80 MG TAB.CHEW PO PRN (03:25)
[2017-11-17] MEDS: ONDANSETRON HCL 4 MG/2 ML VIAL IVP PRN (03:25)
[2017-11-17] MEDS: INSULIN LISPRO 100 UNIT/ML 3ML SQ SCH ×4 (05:36→21:00)
[2017-11-17 05:47] LABS: HEMATOCRIT 24.7 % (42-54); MEAN CORPUSCULAR HEMOGLOBIN 29.7 pg (27.0-33.0); MEAN CORPUSCULAR HGB CONC 33.5 g/dL (32.0-36.0); MEAN CORPUSCULAR VOLUME 88.8 fL (79-99); PLATELET COUNT (AUTO) 330 K/uL (130-400); RED BLOOD CELL COUNT(AUTO) 2.78 MIL/uL (4.50-6.20); RED CELL DISTRIBUTION WIDTH 15.3 % (11.0-15.5); WHITE BLOOD COUNT (AUTO) 16.7 K/uL (4.8-10.8)
[2017-11-17 06:01] LABS: ALBUMIN 2.5 g/dL (3.5-5.0); CREATININE 5.5 mg/dL (0.5-1.5); PHOSPHORUS 8.5 mg/dL (2.5-4.9)
[2017-11-17 06:03] LABS: POTASSIUM 2.8 mmol/L (3.5-5.1)
[2017-11-17 06:27] LABS: B-TYPE NATRIURETIC PEPTIDE 40 pg/mL (0-100)
[2017-11-17] MEDS: BUDESONIDE 0.5 MG/2 ML INH IH SCH ×2 (06:53→19:14)
[2017-11-17 07:05] LABS: MAN.DIFF COMMENT-IMPRESSION MANUAL DIFFERENTIAL; MONOCYTES % (MANUAL) 5 % (2-9); PLATELET MORPHOLOGY COMMENT ADEQUATE; SEGMENTED NEUTROPHILS % 95 % (40-70)
[2017-11-17] MEDS: CHOLESTYRAMINE PACKET 4 GM PACKET PO SCH (08:03)
[2017-11-17] MEDS: CEFEPIME HCL 1 GM VIAL IVP SCH ×2 (08:12→20:26)
[2017-11-17] MEDS: FUROSEMIDE 10 MG/ML 4ML VIAL IV SCH (08:13)
[2017-11-17] MEDS: PREDNISONE 10 MG TABLET PO SCH (08:16)
[2017-11-17] MEDS: LACTOBACILLUS RHAMNOSUS GG 1 EACH CAP.SPRINK NG SCH ×2 (08:16→20:27)
[2017-11-17] MEDS: SEVELAMER HCL 800 MG TABLET PO SCH ×3 (08:16→17:00)
[2017-11-17] MEDS: FAMOTIDINE 20MG TAB 20 MG TAB PO SCH (08:16)
[2017-11-17] MEDS: POTASSIUM CHLORIDE 20MEQ/100ML 100 ML IV PRN (08:16)
[2017-11-17] MEDS: ASPIRIN 81MG TAB.CHEW PO SCH (08:16)
[2017-11-17] MEDS: METOPROLOL TARTRATE 25 MG TAB PO SCH ×3 (08:16→20:27)
[2017-11-17] MEDS: ZINC OXIDE OINT 60GM TUBE TP SCH (08:17)
[2017-11-17] MEDS: CLOTRIMAZOLE 30 GM CREAM.GM. TP SCH (08:17)
[2017-11-17] MEDS: BALSAM PERU/CASTOR OIL 60 GM TUBE TP SCH (08:17)
[2017-11-17] MEDS: INSULIN GLARGINE 100 UNITS/ML 10 ML VIAL SQ SCH (08:19)
[2017-11-17] MEDS ORDERED: INSULIN LISPRO 100 UNIT/ML 3ML SQ ONE ×2 (11:14→17:20)
[2017-11-17] MEDS: FLUCONAZOLE 200 MG/NS 100 ML 100 ML IV SCH (20:26)
[2017-11-18] VITALS (26 sets, daily range): BP systolic 94–132; BP diastolic 51–72
[2017-11-18] MEDS: CHLORHEXIDINE GLUCONATE 473 ML MOUTHWASH MM SCH ×5 (00:09→23:07)
[2017-11-18] MEDS: 1/2 NORMAL SALINE + 20 MEQ KCL 1,000 ML IV SCH ×3 (00:24→20:46)
[2017-11-18] MEDS: IPRATROPIUM/ALBUTEROL SULFATE 3 ML SOLUTION IH SCH ×6 (02:26→22:46)
[2017-11-18] MEDS: HEPARIN SODIUM 5000UNIT/ML 1ML VIAL SQ SCH ×2 (02:57→14:15)
[2017-11-18 04:13] LABS: BASOPHILS % (AUTO) 0.1 % (0.0-5.0); HEMATOCRIT 24.7 % (42-54); LYMPHOCYTES % (AUTO) 3.4 % (21.0-51.0); MEAN CORPUSCULAR HEMOGLOBIN 29.2 pg (27.0-33.0); MEAN CORPUSCULAR HGB CONC 33.4 g/dL (32.0-36.0); MEAN CORPUSCULAR VOLUME 87.5 fL (79-99); NEUTROPHILS % (AUTO) 91.5 % (40.0-77.0); PLATELET COUNT (AUTO) 302 K/uL (130-400); RED BLOOD CELL COUNT(AUTO) 2.82 MIL/uL (4.50-6.20); RED CELL DISTRIBUTION WIDTH 15.2 % (11.0-15.5); WHITE BLOOD COUNT (AUTO) 16.5 K/uL (4.8-10.8)
[2017-11-18 04:31] LABS: CREATININE 5.4 mg/dL (0.5-1.5); POTASSIUM 3.1 mmol/L (3.5-5.1)
[2017-11-18] MEDS: METRONIDAZOLE 500 MG TABLET PO SCH ×3 (05:38→20:46)
[2017-11-18] MEDS: INSULIN LISPRO 100 UNIT/ML 3ML SQ SCH ×4 (06:00→22:49)
[2017-11-18] MEDS: BUDESONIDE 0.5 MG/2 ML INH IH SCH ×2 (06:34→19:26)
[2017-11-18] MEDS: FUROSEMIDE 10 MG/ML 4ML VIAL IV SCH (08:33)
[2017-11-18] MEDS: ASPIRIN 81MG TAB.CHEW PO SCH (08:33)
[2017-11-18] MEDS: FAMOTIDINE 20MG TAB 20 MG TAB PO SCH (08:33)
[2017-11-18] MEDS: METOPROLOL TARTRATE 25 MG TAB PO SCH ×3 (08:33→20:46)
[2017-11-18] MEDS: SEVELAMER HCL 800 MG TABLET PO SCH ×3 (08:33→16:29)
[2017-11-18] MEDS: CEFEPIME HCL 1 GM VIAL IVP SCH ×2 (08:33→20:46)
[2017-11-18] MEDS: PREDNISONE 10 MG TABLET PO SCH (08:33)
[2017-11-18] MEDS: LACTOBACILLUS RHAMNOSUS GG 1 EACH CAP.SPRINK NG SCH ×2 (08:33→20:46)
[2017-11-18] MEDS: ZINC OXIDE OINT 60GM TUBE TP SCH (08:44)
[2017-11-18] MEDS: BALSAM PERU/CASTOR OIL 60 GM TUBE TP SCH (08:45)
[2017-11-18] MEDS: CLOTRIMAZOLE 30 GM CREAM.GM. TP SCH (08:45)
[2017-11-18] MEDS: INSULIN GLARGINE 100 UNITS/ML 10 ML VIAL SQ SCH (08:46)
[2017-11-18 18:53] LABS: HEMATOCRIT 24.6 % (42-54)
[2017-11-18 18:59] LABS: INR 1.18 (0.85-1.15); PARTIAL THROMBOPLASTIN TIME 33.9 SEC (26.3-35.5); PROTHROMBIN TIME 12.3 SEC (9.6-11.6)
[2017-11-18] MEDS: FLUCONAZOLE 200 MG/NS 100 ML 100 ML IV SCH (20:46)
[2017-11-18] MEDS: SIMETHICONE 80 MG TAB.CHEW PO PRN (20:52)
[2017-11-18] MEDS: QUETIAPINE FUMARATE 25 MG TAB PO PRN (20:52)
[2017-11-18] MEDS ORDERED: PANTOPRAZOLE 40 MG/VIAL IVP SCH (21:00)
[2017-11-18] MEDS ORDERED: LORAZEPAM 2 MG/ML 1 ML VIAL IVP PRN (22:00)
[2017-11-19] VITALS (27 sets, daily range): BP systolic 99–142; BP diastolic 36–79
[2017-11-19] MEDS: IPRATROPIUM/ALBUTEROL SULFATE 3 ML SOLUTION IH SCH ×6 (02:36→22:06)
[2017-11-19 04:06] LABS: HEMATOCRIT 22.5 % (42-54); MEAN CORPUSCULAR HEMOGLOBIN 29.2 pg (27.0-33.0); MEAN CORPUSCULAR HGB CONC 33.2 g/dL (32.0-36.0); MEAN CORPUSCULAR VOLUME 87.8 fL (79-99); NUCLEATED RED BLOOD CELLS 0.1 % (0.0-0.19); PLATELET COUNT (AUTO) 271 K/uL (130-400); RED BLOOD CELL COUNT(AUTO) 2.56 MIL/uL (4.50-6.20); RED CELL DISTRIBUTION WIDTH 15.7 % (11.0-15.5); WHITE BLOOD COUNT (AUTO) 12.5 K/uL (4.8-10.8)
[2017-11-19 04:10] LABS: BAND NEUTROPHILS % (MANUAL) 5 % (0-2); LYMPHOCYTES % (MANUAL) 10 % (22-44); MONOCYTES % (MANUAL) 5 % (2-9); SEGMENTED NEUTROPHILS % 80 % (40-70)
[2017-11-19 04:11] LABS: MAN.DIFF COMMENT-IMPRESSION MANUAL DIFFERENTIAL; PLATELET MORPHOLOGY COMMENT ADEQUATE
[2017-11-19] MEDS: METRONIDAZOLE 500 MG TABLET PO SCH ×3 (05:04→20:42)
[2017-11-19] MEDS: 1/2 NORMAL SALINE + 20 MEQ KCL 1,000 ML IV SCH ×2 (05:05→16:22)
[2017-11-19] MEDS: INSULIN LISPRO 100 UNIT/ML 3ML SQ SCH ×4 (06:05→21:00)
[2017-11-19] MEDS: CHLORHEXIDINE GLUCONATE 473 ML MOUTHWASH MM SCH ×3 (06:11→18:00)
[2017-11-19] MEDS: BUDESONIDE 0.5 MG/2 ML INH IH SCH ×2 (06:51→18:22)
[2017-11-19] MEDS: SEVELAMER HCL 800 MG TABLET PO SCH ×3 (08:00→17:00)
[2017-11-19] MEDS: INSULIN GLARGINE 100 UNITS/ML 10 ML VIAL SQ SCH (09:00)
[2017-11-19] MEDS: FUROSEMIDE 10 MG/ML 4ML VIAL IV SCH (09:19)
[2017-11-19] MEDS: CEFEPIME HCL 1 GM VIAL IVP SCH ×2 (09:19→20:42)
[2017-11-19] MEDS: ASPIRIN 81MG TAB.CHEW PO SCH (09:20)
[2017-11-19] MEDS: METOPROLOL TARTRATE 25 MG TAB PO SCH ×3 (09:20→20:42)
[2017-11-19] MEDS: LACTOBACILLUS RHAMNOSUS GG 1 EACH CAP.SPRINK NG SCH ×2 (09:20→20:42)
[2017-11-19] MEDS: PREDNISONE 10 MG TABLET PO SCH (09:20)
[2017-11-19] MEDS: BALSAM PERU/CASTOR OIL 60 GM TUBE TP SCH (09:58)
[2017-11-19] MEDS: CLOTRIMAZOLE 30 GM CREAM.GM. TP SCH (10:05)
[2017-11-19] MEDS: ZINC OXIDE OINT 60GM TUBE TP SCH (10:06)
[2017-11-19] MEDS ORDERED: PANTOPRAZOLE SODIUM 40 MG TABLET.DR PO ONE (15:28)
[2017-11-19] MEDS: PANTOPRAZOLE SODIUM 40 MG TABLET.DR PO SCH (15:30)
[2017-11-19] MEDS: FLUCONAZOLE 200 MG/NS 100 ML 100 ML IV SCH (20:42)
[2017-11-20] VITALS (7 sets, daily range): BP systolic 107–173; BP diastolic 53–93
[2017-11-20] MEDS: CHLORHEXIDINE GLUCONATE 473 ML MOUTHWASH MM SCH ×3 (00:25→12:11)
[2017-11-20] MEDS: IPRATROPIUM/ALBUTEROL SULFATE 3 ML SOLUTION IH SCH ×6 (02:02→21:45)
[2017-11-20 04:42] LABS: CREATININE 4.3 mg/dL (0.5-1.5); POTASSIUM 3.7 mmol/L (3.5-5.1)
[2017-11-20] MEDS: METRONIDAZOLE 500 MG TABLET PO SCH ×3 (06:21→20:55)
[2017-11-20] MEDS: INSULIN LISPRO 100 UNIT/ML 3ML SQ SCH ×4 (06:24→21:40)
[2017-11-20] MEDS: BUDESONIDE 0.5 MG/2 ML INH IH SCH ×2 (07:02→18:56)
[2017-11-20] MEDS: CEFEPIME HCL 1 GM VIAL IVP SCH ×2 (09:24→20:57)
[2017-11-20] MEDS: LACTOBACILLUS RHAMNOSUS GG 1 EACH CAP.SPRINK NG SCH ×2 (09:24→20:55)
[2017-11-20] MEDS: QUETIAPINE FUMARATE 25 MG TAB PO PRN (09:25)
[2017-11-20] MEDS: ASPIRIN 81MG TAB.CHEW PO SCH (09:25)
[2017-11-20] MEDS: FUROSEMIDE 10 MG/ML 4ML VIAL IV SCH (09:25)
[2017-11-20] MEDS: PANTOPRAZOLE SODIUM 40 MG TABLET.DR PO SCH (09:25)
[2017-11-20] MEDS: SEVELAMER HCL 800 MG TABLET PO SCH ×3 (09:25→16:30)
[2017-11-20] MEDS: PREDNISONE 10 MG TABLET PO SCH (09:25)
[2017-11-20] MEDS: METOPROLOL TARTRATE 25 MG TAB PO SCH ×3 (09:25→20:56)
[2017-11-20] MEDS: INSULIN GLARGINE 100 UNITS/ML 10 ML VIAL SQ SCH (09:27)
[2017-11-20] MEDS: BALSAM PERU/CASTOR OIL 60 GM TUBE TP SCH (09:30)
[2017-11-20] MEDS: ZINC OXIDE OINT 60GM TUBE TP SCH (09:30)
[2017-11-20] MEDS: CLOTRIMAZOLE 30 GM CREAM.GM. TP SCH (09:30)
[2017-11-20] MEDS ORDERED: PHARMACY COMMUNICATION MISC SCH (13:45)
[2017-11-20] MEDS: 1/2 NORMAL SALINE + 20 MEQ KCL 1,000 ML IV SCH (13:56)
[2017-11-20] MEDS ORDERED: MAGIC MOUTHWASH PO SCH ×3 (15:00)
[2017-11-20] MEDS ORDERED: ALPRAZOLAM 0.25 MG TABLET PO PRN (15:30)
[2017-11-20] MEDS ORDERED: INSULIN LISPRO 100 UNIT/ML 3ML SQ ONE ×2 (16:27→21:44)
[2017-11-20] MEDS: MAG HYDROX/AL HYDROX/SIMETH 30 ML, LIDOCAINE HCL 2% VISCOUS 30 ML, DIPHENHYDRAMINE HCL ... PO SCH ×3 (17:26)
[2017-11-20] MEDS: COMPOUND PO NARCOTIC 1 EACH PO SCH (17:27)
[2017-11-20] MEDS: FLUCONAZOLE 200 MG/NS 100 ML 100 ML IV SCH (20:57)
[2017-11-21] MEDS: MAG HYDROX/AL HYDROX/SIMETH 30 ML, LIDOCAINE HCL 2% VISCOUS 30 ML, DIPHENHYDRAMINE HCL ... PO SCH ×12 (00:29→18:50)
[2017-11-21] MEDS: 1/2 NORMAL SALINE + 20 MEQ KCL 1,000 ML IV SCH ×3 (00:30→21:46)
[2017-11-21] MEDS: IPRATROPIUM/ALBUTEROL SULFATE 3 ML SOLUTION IH SCH ×6 (01:52→22:21)
[2017-11-21 03:34] VITALS: BP 125/76
[2017-11-21 03:46] LABS: BASOPHILS % (AUTO) 0.2 % (0.0-5.0); EOSINOPHILS % (AUTO) 0.5 % (0.0-8.0); HEMATOCRIT 21.3 % (42-54); LYMPHOCYTES % (AUTO) 4.1 % (21.0-51.0); MEAN CORPUSCULAR HEMOGLOBIN 30.8 pg (27.0-33.0); MEAN CORPUSCULAR HGB CONC 34.6 g/dL (32.0-36.0); MEAN CORPUSCULAR VOLUME 89.1 fL (79-99); MONOCYTES % (AUTO) 4.3 % (3.0-13.0); NEUTROPHILS % (AUTO) 90.9 % (40.0-77.0); NUCLEATED RED BLOOD CELLS 0.1 % (0.0-0.19); PLATELET COUNT (AUTO) 212 K/uL (130-400); RED BLOOD CELL COUNT(AUTO) 2.39 MIL/uL (4.50-6.20); RED CELL DISTRIBUTION WIDTH 15.8 % (11.0-15.5); WHITE BLOOD COUNT (AUTO) 6.9 K/uL (4.8-10.8)
[2017-11-21 03:49] LABS: INR 1.13 (0.85-1.15); PARTIAL THROMBOPLASTIN TIME 30.6 SEC (26.3-35.5); PROTHROMBIN TIME 11.8 SEC (9.6-11.6)
[2017-11-21 04:00] LABS: ALBUMIN 1.9 g/dL (3.5-5.0); CREATININE 3.7 mg/dL (0.5-1.5); PHOSPHORUS 5.5 mg/dL (2.5-4.9); POTASSIUM 3.7 mmol/L (3.5-5.1)
[2017-11-21] MEDS: METRONIDAZOLE 500 MG TABLET PO SCH ×3 (05:20→21:47)
[2017-11-21] MEDS: INSULIN LISPRO 100 UNIT/ML 3ML SQ SCH ×4 (06:03→21:53)
[2017-11-21] MEDS: BUDESONIDE 0.5 MG/2 ML INH IH SCH ×2 (06:41→19:10)
[2017-11-21 07:00] VITALS: BP 125/70
[2017-11-21] MEDS: INSULIN GLARGINE 100 UNITS/ML 10 ML VIAL SQ SCH (07:18)
[2017-11-21 07:57] LABS: ABG BASE EXCESS -5.9 mmol/L (-2.0-3.0); ABG HCO3 18.8 mmol/L (21.0-28.0); ABG OXYGEN SATURATION 94.7 % (95.0-99.0); ABG PCO2 35 mmHg (35-48)
[2017-11-21] MEDS: ASPIRIN 81MG TAB.CHEW PO SCH (08:55)
[2017-11-21] MEDS: CEFEPIME HCL 1 GM VIAL IVP SCH ×2 (08:55→21:46)
[2017-11-21] MEDS: SEVELAMER HCL 800 MG TABLET PO SCH ×3 (08:56→16:31)
[2017-11-21] MEDS: PREDNISONE 10 MG TABLET PO SCH (08:56)
[2017-11-21] MEDS: LACTOBACILLUS RHAMNOSUS GG 1 EACH CAP.SPRINK NG SCH ×2 (08:56→21:46)
[2017-11-21] MEDS: METOPROLOL TARTRATE 25 MG TAB PO SCH ×3 (08:56→21:48)
[2017-11-21] MEDS: PANTOPRAZOLE SODIUM 40 MG TABLET.DR PO SCH (08:56)
[2017-11-21] MEDS: CLOTRIMAZOLE 30 GM CREAM.GM. TP SCH (08:57)
[2017-11-21] MEDS: ZINC OXIDE OINT 60GM TUBE TP SCH (08:57)
[2017-11-21] MEDS: BALSAM PERU/CASTOR OIL 60 GM TUBE TP SCH (08:58)
[2017-11-21 11:00] VITALS: BP 130/62
[2017-11-21] MEDS: COMPOUND PO NARCOTIC 1 EACH PO SCH ×2 (11:43→18:50)
[2017-11-21 16:00] VITALS: BP 105/68
[2017-11-21 19:24] VITALS: BP 129/72
[2017-11-21] MEDS: FLUCONAZOLE 200 MG/NS 100 ML 100 ML IV SCH (21:46)
[2017-11-21 23:40] VITALS: BP 142/77
[2017-11-22] MEDS: IPRATROPIUM/ALBUTEROL SULFATE 3 ML SOLUTION IH SCH ×6 (01:52→21:49)
[2017-11-22 03:35] VITALS: BP 122/74
[2017-11-22 04:25] LABS: BASOPHILS % (AUTO) 0.2 % (0.0-5.0); EOSINOPHILS % (AUTO) 0.8 % (0.0-8.0); HEMATOCRIT 24.1 % (42-54); LYMPHOCYTES % (AUTO) 4.1 % (21.0-51.0); MEAN CORPUSCULAR HEMOGLOBIN 29.3 pg (27.0-33.0); MEAN CORPUSCULAR HGB CONC 32.9 g/dL (32.0-36.0); NEUTROPHILS % (AUTO) 87.9 % (40.0-77.0); PLATELET COUNT (AUTO) 218 K/uL (130-400); RED BLOOD CELL COUNT(AUTO) 2.71 MIL/uL (4.50-6.20); WHITE BLOOD COUNT (AUTO) 6.7 K/uL (4.8-10.8)
[2017-11-22 04:57] LABS: CREATININE 3.2 mg/dL (0.5-1.5); MAGNESIUM 1.8 mg/dL (1.80-2.40); PHOSPHORUS 4.8 mg/dL (2.5-4.9)
[2017-11-22] MEDS: MAG HYDROX/AL HYDROX/SIMETH 30 ML, LIDOCAINE HCL 2% VISCOUS 30 ML, DIPHENHYDRAMINE HCL ... PO SCH ×12 (05:05→17:46)
[2017-11-22] MEDS: METRONIDAZOLE 500 MG TABLET PO SCH ×3 (05:39→20:46)
[2017-11-22] MEDS: INSULIN LISPRO 100 UNIT/ML 3ML SQ SCH ×4 (05:45→20:48)
[2017-11-22] MEDS: INSULIN GLARGINE 100 UNITS/ML 10 ML VIAL SQ SCH (06:11)
[2017-11-22] MEDS: BUDESONIDE 0.5 MG/2 ML INH IH SCH ×2 (06:24→18:30)
[2017-11-22 07:00] VITALS: BP 108/63
[2017-11-22] MEDS: CEFEPIME HCL 1 GM VIAL IVP SCH ×2 (09:43→20:45)
[2017-11-22] MEDS: ASPIRIN 81MG TAB.CHEW PO SCH (09:44)
[2017-11-22] MEDS: PREDNISONE 10 MG TABLET PO SCH (09:44)
[2017-11-22] MEDS: LACTOBACILLUS RHAMNOSUS GG 1 EACH CAP.SPRINK NG SCH ×2 (09:44→20:45)
[2017-11-22] MEDS: PANTOPRAZOLE SODIUM 40 MG TABLET.DR PO SCH (09:44)
[2017-11-22] MEDS: METOPROLOL TARTRATE 25 MG TAB PO SCH ×3 (09:44→20:46)
[2017-11-22] MEDS: SEVELAMER HCL 800 MG TABLET PO SCH ×3 (09:45→17:22)
[2017-11-22] MEDS: CLOTRIMAZOLE 30 GM CREAM.GM. TP SCH (09:45)
[2017-11-22] MEDS: ZINC OXIDE OINT 60GM TUBE TP SCH (10:01)
[2017-11-22] MEDS: BALSAM PERU/CASTOR OIL 60 GM TUBE TP SCH (10:01)
[2017-11-22] MEDS ORDERED: TAMSULOSIN HCL 0.4 MG CAP.ER.24H PO SCH (10:15)
[2017-11-22] MEDS ORDERED: LACTULOSE 20 GM/30 ML UDCUP PO SCH (10:15)
[2017-11-22 11:00] VITALS: BP 134/65
[2017-11-22] MEDS: LACTULOSE 20 GM/30 ML UDCUP PO SCH ×2 (11:21→17:45)
[2017-11-22] MEDS: COMPOUND PO NARCOTIC 1 EACH PO SCH (11:26)
[2017-11-22] MEDS ORDERED: METOCLOPRAMIDE 5 MG TABLET PO SCH (11:30)
[2017-11-22] MEDS: METOCLOPRAMIDE 5 MG TABLET PO SCH ×2 (14:27→20:56)
[2017-11-22 16:00] VITALS: BP 110/65
[2017-11-22 20:14] VITALS: BP 133/69
[2017-11-22] MEDS: FLUCONAZOLE 200 MG/NS 100 ML 100 ML IV SCH (20:45)
[2017-11-22 23:20] VITALS: BP 120/63
[2017-11-23] MEDS: LACTULOSE 20 GM/30 ML UDCUP PO SCH ×5 (00:06→21:20)
[2017-11-23] MEDS: IPRATROPIUM/ALBUTEROL SULFATE 3 ML SOLUTION IH SCH ×6 (01:44→22:14)
[2017-11-23 04:00] VITALS: BP 106/62
[2017-11-23] MEDS: METRONIDAZOLE 500 MG TABLET PO SCH ×3 (04:50→21:10)
[2017-11-23] MEDS: MAG HYDROX/AL HYDROX/SIMETH 30 ML, LIDOCAINE HCL 2% VISCOUS 30 ML, DIPHENHYDRAMINE HCL ... PO SCH ×12 (05:46→17:32)
[2017-11-23] MEDS: METOCLOPRAMIDE 5 MG TABLET PO SCH ×3 (05:46→21:10)
[2017-11-23] MEDS: BUDESONIDE 0.5 MG/2 ML INH IH SCH ×2 (06:12→17:09)
[2017-11-23] MEDS: INSULIN GLARGINE 100 UNITS/ML 10 ML VIAL SQ SCH (06:31)
[2017-11-23] MEDS: INSULIN LISPRO 100 UNIT/ML 3ML SQ SCH ×3 (06:33→17:38)
[2017-11-23 07:42] VITALS: BP 113/71
[2017-11-23] MEDS: ASPIRIN 81MG TAB.CHEW PO SCH (08:01)
[2017-11-23] MEDS: TAMSULOSIN HCL 0.4 MG CAP.ER.24H PO SCH (08:01)
[2017-11-23] MEDS: SEVELAMER HCL 800 MG TABLET PO SCH ×3 (08:01→17:32)
[2017-11-23] MEDS: PANTOPRAZOLE SODIUM 40 MG TABLET.DR PO SCH (08:01)
[2017-11-23] MEDS: LACTOBACILLUS RHAMNOSUS GG 1 EACH CAP.SPRINK NG SCH ×2 (08:01→21:10)
[2017-11-23] MEDS: METOPROLOL TARTRATE 25 MG TAB PO SCH ×3 (08:01→21:11)
[2017-11-23] MEDS: PREDNISONE 10 MG TABLET PO SCH (08:01)
[2017-11-23] MEDS: CEFEPIME HCL 1 GM VIAL IVP SCH ×2 (08:02→21:09)
[2017-11-23] MEDS: ZINC OXIDE OINT 60GM TUBE TP SCH (08:40)
[2017-11-23] MEDS: BALSAM PERU/CASTOR OIL 60 GM TUBE TP SCH (08:40)
[2017-11-23] MEDS: CLOTRIMAZOLE 30 GM CREAM.GM. TP SCH (08:40)
[2017-11-23 11:42] VITALS: BP 103/64
[2017-11-23 16:15] VITALS: BP 89/39
[2017-11-23 19:48] VITALS: BP 97/59
[2017-11-23] MEDS: FLUCONAZOLE 200 MG/NS 100 ML 100 ML IV SCH (21:10)
[2017-11-24] VITALS (7 sets, daily range): BP systolic 91–130; BP diastolic 53–70
[2017-11-24] MEDS: MAG HYDROX/AL HYDROX/SIMETH 30 ML, LIDOCAINE HCL 2% VISCOUS 30 ML, DIPHENHYDRAMINE HCL ... PO SCH ×12 (00:03→18:00)
[2017-11-24] MEDS: IPRATROPIUM/ALBUTEROL SULFATE 3 ML SOLUTION IH SCH ×6 (02:00→22:04)
[2017-11-24] MEDS: LACTULOSE 20 GM/30 ML UDCUP PO SCH ×3 (04:51→18:00)
[2017-11-24 05:11] LABS: HEMATOCRIT 24.3 % (42-54); MEAN CORPUSCULAR HEMOGLOBIN 29.2 pg (27.0-33.0); MEAN CORPUSCULAR HGB CONC 32.5 g/dL (32.0-36.0); MEAN CORPUSCULAR VOLUME 89.8 fL (79-99); NUCLEATED RED BLOOD CELLS 0.5 % (0.0-0.19); PLATELET COUNT (AUTO) 210 K/uL (130-400); RED BLOOD CELL COUNT(AUTO) 2.71 MIL/uL (4.50-6.20); RED CELL DISTRIBUTION WIDTH 16.7 % (11.0-15.5); WHITE BLOOD COUNT (AUTO) 6.1 K/uL (4.8-10.8)
[2017-11-24 05:23] LABS: BAND NEUTROPHILS % (MANUAL) 7 % (0-2); BASOPHILS % (MANUAL) 1 % (0-2); LYMPHOCYTES % (MANUAL) 8 % (22-44); MAN.DIFF COMMENT-IMPRESSION MANUAL DIFFERENTIAL; MONOCYTES % (MANUAL) 10 % (2-9); SEGMENTED NEUTROPHILS % 74 % (40-70)
[2017-11-24 05:24] LABS: PLATELET MORPHOLOGY COMMENT ADEQUATE
[2017-11-24 05:29] LABS: POTASSIUM 3.2 mmol/L (3.5-5.1)
[2017-11-24] MEDS: METRONIDAZOLE 500 MG TABLET PO SCH ×2 (05:40→12:11)
[2017-11-24] MEDS: METOCLOPRAMIDE 5 MG TABLET PO SCH ×3 (05:40→22:42)
[2017-11-24] MEDS: INSULIN GLARGINE 100 UNITS/ML 10 ML VIAL SQ SCH (05:41)
[2017-11-24] MEDS: INSULIN LISPRO 100 UNIT/ML 3ML SQ SCH ×4 (05:49→22:20)
[2017-11-24] MEDS: BUDESONIDE 0.5 MG/2 ML INH IH SCH ×2 (06:19→18:45)
[2017-11-24] MEDS: TAMSULOSIN HCL 0.4 MG CAP.ER.24H PO SCH (08:38)
[2017-11-24] MEDS: SEVELAMER HCL 800 MG TABLET PO SCH ×3 (08:38→17:00)
[2017-11-24] MEDS: METOPROLOL TARTRATE 25 MG TAB PO SCH ×3 (08:38→22:45)
[2017-11-24] MEDS: PREDNISONE 10 MG TABLET PO SCH (08:38)
[2017-11-24] MEDS: PANTOPRAZOLE SODIUM 40 MG TABLET.DR PO SCH (08:38)
[2017-11-24] MEDS: ASPIRIN 81MG TAB.CHEW PO SCH (08:38)
[2017-11-24] MEDS: CEFEPIME HCL 1 GM VIAL IVP SCH ×2 (08:39→22:30)
[2017-11-24] MEDS: LACTOBACILLUS RHAMNOSUS GG 1 EACH CAP.SPRINK NG SCH ×2 (08:39→21:00)
[2017-11-24] MEDS: ZINC OXIDE OINT 60GM TUBE TP SCH (09:00)
[2017-11-24] MEDS: CLOTRIMAZOLE 30 GM CREAM.GM. TP SCH (09:00)
[2017-11-24] MEDS: BALSAM PERU/CASTOR OIL 60 GM TUBE TP SCH (09:00)
[2017-11-24 16:04] LABS: ALBUMIN 1.7 g/dL (3.5-5.0); CREATININE 3.4 mg/dL (0.5-1.5); PHOSPHORUS 3.4 mg/dL (2.5-4.9); POTASSIUM 3.6 mmol/L (3.5-5.1)
[2017-11-24] MEDS: COMPOUND PO NARCOTIC 1 EACH PO SCH (19:34)
[2017-11-24] MEDS: FLUCONAZOLE 200 MG/NS 100 ML 100 ML IV SCH (22:30)
[2017-11-25] MEDS: IPRATROPIUM/ALBUTEROL SULFATE 3 ML SOLUTION IH SCH ×6 (02:35→22:06)
[2017-11-25 03:00] VITALS: BP 135/68
[2017-11-25 04:39] LABS: ALBUMIN 1.8 g/dL (3.5-5.0); CREATININE 3.5 mg/dL (0.5-1.5); PHOSPHORUS 3.5 mg/dL (2.5-4.9); POTASSIUM 3.4 mmol/L (3.5-5.1)
[2017-11-25] MEDS: MAG HYDROX/AL HYDROX/SIMETH 30 ML, LIDOCAINE HCL 2% VISCOUS 30 ML, DIPHENHYDRAMINE HCL ... PO SCH ×15 (06:00→23:30)
[2017-11-25] MEDS: INSULIN LISPRO 100 UNIT/ML 3ML SQ SCH ×4 (06:30→22:46)
[2017-11-25] MEDS: BUDESONIDE 0.5 MG/2 ML INH IH SCH ×2 (06:42→18:41)
[2017-11-25] MEDS: METOCLOPRAMIDE 5 MG TABLET PO SCH ×3 (07:41→23:24)
[2017-11-25] MEDS: LACTULOSE 20 GM/30 ML UDCUP PO SCH ×5 (07:41→23:25)
[2017-11-25] MEDS: INSULIN GLARGINE 100 UNITS/ML 10 ML VIAL SQ SCH (07:43)
[2017-11-25 08:01] VITALS: BP 128/63
[2017-11-25] MEDS: BALSAM PERU/CASTOR OIL 60 GM TUBE TP SCH (09:00)
[2017-11-25] MEDS: ZINC OXIDE OINT 60GM TUBE TP SCH (09:00)
[2017-11-25] MEDS: CLOTRIMAZOLE 30 GM CREAM.GM. TP SCH (09:00)
[2017-11-25] MEDS: PREDNISONE 10 MG TABLET PO SCH (09:12)
[2017-11-25] MEDS: SEVELAMER HCL 800 MG TABLET PO SCH ×3 (09:12→18:56)
[2017-11-25] MEDS: TAMSULOSIN HCL 0.4 MG CAP.ER.24H PO SCH (09:12)
[2017-11-25] MEDS: ASPIRIN 81MG TAB.CHEW PO SCH (09:12)
[2017-11-25] MEDS: PANTOPRAZOLE SODIUM 40 MG TABLET.DR PO SCH (09:13)
[2017-11-25] MEDS: LACTOBACILLUS RHAMNOSUS GG 1 EACH CAP.SPRINK NG SCH ×2 (09:13→23:23)
[2017-11-25] MEDS: METOPROLOL TARTRATE 25 MG TAB PO SCH ×3 (09:13→21:00)
[2017-11-25] MEDS: CEFEPIME HCL 1 GM VIAL IVP SCH ×2 (09:13→23:18)
[2017-11-25] MEDS: ACETAMINOPHEN 325 MG TAB PO PRN (09:14)
[2017-11-25 11:43] VITALS: BP 114/66
[2017-11-25 14:07] LABS: ABG BASE EXCESS -5.3 mmol/L (-2.0-3.0); ABG PCO2 39 mmHg (35-48)
[2017-11-25 16:00] VITALS: BP 102/60
[2017-11-25] MEDS: COMPOUND PO MISCELLANEOUS 1 EACH MISC MISC PRN (18:58)
[2017-11-25 20:18] VITALS: BP 148/88
[2017-11-25] MEDS: FLUCONAZOLE 200 MG/NS 100 ML 100 ML IV SCH (23:18)
[2017-11-25 23:50] VITALS: BP 108/64
[2017-11-26] MEDS: IPRATROPIUM/ALBUTEROL SULFATE 3 ML SOLUTION IH SCH ×6 (01:29→21:56)
[2017-11-26 04:01] VITALS: BP 114/74
[2017-11-26] MEDS: INSULIN LISPRO 100 UNIT/ML 3ML SQ SCH ×4 (06:10→21:00)
[2017-11-26] MEDS: INSULIN GLARGINE 100 UNITS/ML 10 ML VIAL SQ SCH (06:10)
[2017-11-26] MEDS: BUDESONIDE 0.5 MG/2 ML INH IH SCH ×2 (06:35→18:26)
[2017-11-26] MEDS: METOCLOPRAMIDE 5 MG TABLET PO SCH ×3 (06:38→21:51)
[2017-11-26] MEDS: LACTULOSE 20 GM/30 ML UDCUP PO SCH ×3 (06:44→18:00)
[2017-11-26] MEDS: MAG HYDROX/AL HYDROX/SIMETH 30 ML, LIDOCAINE HCL 2% VISCOUS 30 ML, DIPHENHYDRAMINE HCL ... PO SCH ×12 (06:45→23:24)
[2017-11-26 07:00] VITALS: BP 115/71
[2017-11-26] MEDS: SEVELAMER HCL 800 MG TABLET PO SCH ×3 (08:44→17:04)
[2017-11-26] MEDS: LACTOBACILLUS RHAMNOSUS GG 1 EACH CAP.SPRINK NG SCH ×2 (09:59→21:51)
[2017-11-26] MEDS: PREDNISONE 10 MG TABLET PO SCH (09:59)
[2017-11-26] MEDS: CEFEPIME HCL 1 GM VIAL IVP SCH ×2 (09:59→21:50)
[2017-11-26] MEDS: ASPIRIN 81MG TAB.CHEW PO SCH (10:00)
[2017-11-26] MEDS: PANTOPRAZOLE SODIUM 40 MG TABLET.DR PO SCH (10:00)
[2017-11-26] MEDS: CLOTRIMAZOLE 30 GM CREAM.GM. TP SCH (10:00)
[2017-11-26] MEDS: METOPROLOL TARTRATE 25 MG TAB PO SCH ×3 (10:00→21:52)
[2017-11-26] MEDS: TAMSULOSIN HCL 0.4 MG CAP.ER.24H PO SCH (10:00)
[2017-11-26] MEDS: BALSAM PERU/CASTOR OIL 60 GM TUBE TP SCH (10:01)
[2017-11-26] MEDS: ZINC OXIDE OINT 60GM TUBE TP SCH (10:01)
[2017-11-26 11:00] VITALS: BP 126/69
[2017-11-26] MEDS: ONDANSETRON HCL 4 MG/2 ML VIAL IVP PRN (11:57)
[2017-11-26 16:00] VITALS: BP 103/60
[2017-11-26] MEDS: ACETAMINOPHEN 325 MG TAB PO PRN (17:06)
[2017-11-26 19:41] VITALS: BP 124/93
[2017-11-26] MEDS ORDERED: LACTULOSE 20 GM/30 ML UDCUP PO PRN (19:45)
[2017-11-26] MEDS: FLUCONAZOLE 200 MG/NS 100 ML 100 ML IV SCH (21:51)
[2017-11-26 23:25] VITALS: BP 119/64
[2017-11-27] MEDS: IPRATROPIUM/ALBUTEROL SULFATE 3 ML SOLUTION IH SCH ×6 (02:00→22:10)
[2017-11-27 04:01] VITALS: BP 125/68
[2017-11-27 05:10] LABS: ALBUMIN 1.6 g/dL (3.5-5.0); BILIRUBIN,TOTAL 0.4 mg/dL (0.2-1.0); CREATININE 3.4 mg/dL (0.5-1.5); POTASSIUM 3.7 mmol/L (3.5-5.1); TOTAL PROTEIN, SERUM 5.5 g/dL (6.0-8.3)
[2017-11-27] MEDS: BUDESONIDE 0.5 MG/2 ML INH IH SCH ×2 (05:20→19:30)
[2017-11-27] MEDS: METOCLOPRAMIDE 5 MG TABLET PO SCH ×3 (05:34→21:00)
[2017-11-27] MEDS: MAG HYDROX/AL HYDROX/SIMETH 30 ML, LIDOCAINE HCL 2% VISCOUS 30 ML, DIPHENHYDRAMINE HCL ... PO SCH ×9 (05:34→18:50)
[2017-11-27] MEDS: INSULIN LISPRO 100 UNIT/ML 3ML SQ SCH ×4 (06:16→21:11)
[2017-11-27] MEDS: INSULIN GLARGINE 100 UNITS/ML 10 ML VIAL SQ SCH (06:17)
[2017-11-27 07:00] VITALS: BP 109/55
[2017-11-27] MEDS: SEVELAMER HCL 800 MG TABLET PO SCH ×3 (10:22→17:21)
[2017-11-27] MEDS: CEFEPIME HCL 1 GM VIAL IVP SCH (10:22)
[2017-11-27] MEDS: TAMSULOSIN HCL 0.4 MG CAP.ER.24H PO SCH (10:22)
[2017-11-27] MEDS: LACTOBACILLUS RHAMNOSUS GG 1 EACH CAP.SPRINK NG SCH ×2 (10:22→21:00)
[2017-11-27] MEDS: ZINC OXIDE OINT 60GM TUBE TP SCH (10:23)
[2017-11-27] MEDS: PREDNISONE 10 MG TABLET PO SCH (10:23)
[2017-11-27] MEDS: PANTOPRAZOLE SODIUM 40 MG TABLET.DR PO SCH (10:23)
[2017-11-27] MEDS: METOPROLOL TARTRATE 25 MG TAB PO SCH ×3 (10:23→21:00)
[2017-11-27] MEDS: ASPIRIN 81MG TAB.CHEW PO SCH (10:23)
[2017-11-27] MEDS: CLOTRIMAZOLE 30 GM CREAM.GM. TP SCH (10:23)
[2017-11-27] MEDS: BALSAM PERU/CASTOR OIL 60 GM TUBE TP SCH (10:24)
[2017-11-27 11:00] VITALS: BP 87/52
[2017-11-27 16:00] VITALS: BP 110/67
[2017-11-27 19:36] VITALS: BP 130/65
[2017-11-27] MEDS: FLUCONAZOLE 200 MG/NS 100 ML 100 ML IV SCH (21:00)
[2017-11-27 23:58] VITALS: BP 135/70
[2017-11-28] MEDS: MAG HYDROX/AL HYDROX/SIMETH 30 ML, LIDOCAINE HCL 2% VISCOUS 30 ML, DIPHENHYDRAMINE HCL ... PO SCH ×12 (00:18→16:58)
[2017-11-28] MEDS: IPRATROPIUM/ALBUTEROL SULFATE 3 ML SOLUTION IH SCH ×6 (01:59→21:54)
[2017-11-28 03:59] VITALS: BP 127/58
[2017-11-28] MEDS: METOCLOPRAMIDE 5 MG TABLET PO SCH ×3 (05:40→22:27)
[2017-11-28] MEDS: BUDESONIDE 0.5 MG/2 ML INH IH SCH ×2 (06:19→21:45)
[2017-11-28] MEDS: INSULIN LISPRO 100 UNIT/ML 3ML SQ SCH ×4 (06:34→22:38)
[2017-11-28] MEDS: INSULIN GLARGINE 100 UNITS/ML 10 ML VIAL SQ SCH (06:36)
[2017-11-28 07:00] VITALS: BP 105/52
[2017-11-28 10:04] LABS: HEMATOCRIT 24.5 % (42-54); MEAN CORPUSCULAR HEMOGLOBIN 28.5 pg (27.0-33.0); MEAN CORPUSCULAR HGB CONC 31.7 g/dL (32.0-36.0); NUCLEATED RED BLOOD CELLS 0.1 % (0.0-0.19); PLATELET COUNT (AUTO) 240 K/uL (130-400); RED BLOOD CELL COUNT(AUTO) 2.72 MIL/uL (4.50-6.20); RED CELL DISTRIBUTION WIDTH 17.3 % (11.0-15.5); WHITE BLOOD COUNT (AUTO) 4.9 K/uL (4.8-10.8)
[2017-11-28 10:16] LABS: ALBUMIN 1.6 g/dL (3.5-5.0); BILIRUBIN,TOTAL 0.4 mg/dL (0.2-1.0); CREATININE 3.3 mg/dL (0.5-1.5); POTASSIUM 3.7 mmol/L (3.5-5.1); TOTAL PROTEIN, SERUM 5.5 g/dL (6.0-8.3)
[2017-11-28] MEDS: PREDNISONE 10 MG TABLET PO SCH (10:18)
[2017-11-28] MEDS: PANTOPRAZOLE SODIUM 40 MG TABLET.DR PO SCH (10:18)
[2017-11-28] MEDS: ASPIRIN 81MG TAB.CHEW PO SCH (10:18)
[2017-11-28] MEDS: TAMSULOSIN HCL 0.4 MG CAP.ER.24H PO SCH (10:18)
[2017-11-28] MEDS: METOPROLOL TARTRATE 25 MG TAB PO SCH ×3 (10:19→22:27)
[2017-11-28] MEDS: LACTOBACILLUS RHAMNOSUS GG 1 EACH CAP.SPRINK NG SCH ×2 (10:19→22:27)
[2017-11-28] MEDS: SEVELAMER HCL 800 MG TABLET PO SCH ×3 (10:22→17:00)
[2017-11-28 11:00] VITALS: BP 105/66
[2017-11-28] MEDS ORDERED: TUBERCULIN, PURIFIED PROTEIN DERIVATIVE 5 TU/0.1 ML SYG ID SCH (12:00)
[2017-11-28] MEDS: ZINC OXIDE OINT 60GM TUBE TP SCH (12:02)
[2017-11-28] MEDS: BALSAM PERU/CASTOR OIL 60 GM TUBE TP SCH (12:02)
[2017-11-28] MEDS: CLOTRIMAZOLE 30 GM CREAM.GM. TP SCH (12:02)
[2017-11-28 16:00] VITALS: BP 123/76
[2017-11-28 20:00] VITALS: BP 127/69
[2017-11-28] MEDS: FLUCONAZOLE 200 MG/NS 100 ML 100 ML IV SCH (22:27)
[2017-11-29] VITALS (7 sets, daily range): BP systolic 112–133; BP diastolic 63–71
[2017-11-29] MEDS: MAG HYDROX/AL HYDROX/SIMETH 30 ML, LIDOCAINE HCL 2% VISCOUS 30 ML, DIPHENHYDRAMINE HCL ... PO SCH ×12 (01:58→16:54)
[2017-11-29] MEDS: IPRATROPIUM/ALBUTEROL SULFATE 3 ML SOLUTION IH SCH ×4 (02:00→14:16)
[2017-11-29 03:56] LABS: CREATININE 3.5 mg/dL (0.5-1.5); POTASSIUM 3.5 mmol/L (3.5-5.1)
[2017-11-29] MEDS: BUDESONIDE 0.5 MG/2 ML INH IH SCH ×2 (06:36→20:56)
[2017-11-29] MEDS: INSULIN LISPRO 100 UNIT/ML 3ML SQ SCH ×4 (06:52→21:57)
[2017-11-29] MEDS: METOCLOPRAMIDE 5 MG TABLET PO SCH ×3 (06:56→21:41)
[2017-11-29] MEDS: SEVELAMER HCL 800 MG TABLET PO SCH ×3 (09:06→16:29)
[2017-11-29] MEDS: ASPIRIN 81MG TAB.CHEW PO SCH (10:29)
[2017-11-29] MEDS: TAMSULOSIN HCL 0.4 MG CAP.ER.24H PO SCH (10:29)
[2017-11-29] MEDS: PREDNISONE 10 MG TABLET PO SCH (10:30)
[2017-11-29] MEDS: PANTOPRAZOLE SODIUM 40 MG TABLET.DR PO SCH (10:30)
[2017-11-29] MEDS: LACTOBACILLUS RHAMNOSUS GG 1 EACH CAP.SPRINK NG SCH ×2 (10:30→21:41)
[2017-11-29] MEDS: METOPROLOL TARTRATE 25 MG TAB PO SCH ×3 (10:32→21:41)
[2017-11-29] MEDS: ACETAMINOPHEN 325 MG TAB PO PRN (10:32)
[2017-11-29] MEDS: ZINC OXIDE OINT 60GM TUBE TP SCH (10:33)
[2017-11-29] MEDS: BALSAM PERU/CASTOR OIL 60 GM TUBE TP SCH (10:34)
[2017-11-29] MEDS: CLOTRIMAZOLE 30 GM CREAM.GM. TP SCH (10:35)
[2017-11-29] MEDS: INSULIN GLARGINE 100 UNITS/ML 10 ML VIAL SQ SCH (10:43)
[2017-11-29] MEDS ORDERED: SODIUM CHLORIDE 0.9% 1000ML 1,000 ML IV SCH (20:45)
[2017-11-29] MEDS ORDERED: INSULIN LISPRO 100 UNIT/ML 3ML SQ SCH (21:00)
[2017-11-29] MEDS: FLUCONAZOLE 200 MG/NS 100 ML 100 ML IV SCH (21:39)
[2017-11-30] MEDS: MAG HYDROX/AL HYDROX/SIMETH 30 ML, LIDOCAINE HCL 2% VISCOUS 30 ML, DIPHENHYDRAMINE HCL ... PO SCH ×9 (01:01→16:16)
[2017-11-30] MEDS ORDERED: IPRATROPIUM/ALBUTEROL SULFATE 3 ML SOLUTION IH ONE (01:10)
[2017-11-30 04:07] VITALS: BP 101/72
[2017-11-30] MEDS: METOCLOPRAMIDE 5 MG TABLET PO SCH ×3 (05:33→21:07)
[2017-11-30 06:11] LABS: ALBUMIN 1.6 g/dL (3.5-5.0); CREATININE 3.5 mg/dL (0.5-1.5); PHOSPHORUS 3.6 mg/dL (2.5-4.9); POTASSIUM 3.8 mmol/L (3.5-5.1)
[2017-11-30] MEDS: IPRATROPIUM/ALBUTEROL SULFATE 3 ML SOLUTION IH SCH ×5 (07:03→22:16)
[2017-11-30] MEDS: INSULIN LISPRO 100 UNIT/ML 3ML SQ SCH ×4 (07:30→21:08)
[2017-11-30 07:44] VITALS: BP 128/63
[2017-11-30] MEDS: DEXTROSE 5%-WATER 1,000 ML IV SCH ×2 (09:06→16:05)
[2017-11-30] MEDS: PANTOPRAZOLE SODIUM 40 MG TABLET.DR PO SCH (09:07)
[2017-11-30] MEDS: SEVELAMER HCL 800 MG TABLET PO SCH ×2 (09:07→16:05)
[2017-11-30] MEDS: LACTOBACILLUS RHAMNOSUS GG 1 EACH CAP.SPRINK NG SCH ×2 (09:07→21:07)
[2017-11-30] MEDS: TAMSULOSIN HCL 0.4 MG CAP.ER.24H PO SCH (09:07)
[2017-11-30] MEDS: METOPROLOL TARTRATE 25 MG TAB PO SCH ×3 (09:07→21:07)
[2017-11-30] MEDS: PREDNISONE 10 MG TABLET PO SCH (09:07)
[2017-11-30] MEDS: ASPIRIN 81MG TAB.CHEW PO SCH (09:07)
[2017-11-30] MEDS: INSULIN GLARGINE 100 UNITS/ML 10 ML VIAL SQ SCH (09:27)
[2017-11-30] MEDS: BUDESONIDE 0.5 MG/2 ML INH IH SCH ×2 (09:52→19:34)
[2017-11-30] MEDS: CLOTRIMAZOLE 30 GM CREAM.GM. TP SCH (09:53)
[2017-11-30] MEDS: ZINC OXIDE OINT 60GM TUBE TP SCH (09:54)
[2017-11-30] MEDS: BALSAM PERU/CASTOR OIL 60 GM TUBE TP SCH (09:54)
[2017-11-30 11:26] VITALS: BP 92/42
[2017-11-30 15:52] VITALS: BP 109/68
[2017-11-30 20:00] VITALS: BP 166/91
[2017-11-30] MEDS: FLUCONAZOLE 200 MG/NS 100 ML 100 ML IV SCH (21:07)
[2017-11-30 23:15] VITALS: BP 113/56
[2017-12-01] MEDS: IPRATROPIUM/ALBUTEROL SULFATE 3 ML SOLUTION IH SCH ×6 (02:24→21:53)
[2017-12-01] MEDS: DEXTROSE 5%-WATER 1,000 ML IV SCH ×3 (03:48→16:56)
[2017-12-01 04:19] VITALS: BP 138/74
[2017-12-01] MEDS: MAG HYDROX/AL HYDROX/SIMETH 30 ML, LIDOCAINE HCL 2% VISCOUS 30 ML, DIPHENHYDRAMINE HCL ... PO SCH ×12 (05:50→17:28)
[2017-12-01] MEDS: METOCLOPRAMIDE 5 MG TABLET PO SCH ×3 (05:50→22:24)
[2017-12-01] MEDS: INSULIN LISPRO 100 UNIT/ML 3ML SQ SCH ×4 (06:21→22:35)
[2017-12-01] MEDS: INSULIN GLARGINE 100 UNITS/ML 10 ML VIAL SQ SCH (06:32)
[2017-12-01] MEDS: BUDESONIDE 0.5 MG/2 ML INH IH SCH ×2 (06:47→19:07)
[2017-12-01] MEDS: SEVELAMER HCL 800 MG TABLET PO SCH ×3 (08:00→17:06)
[2017-12-01 08:26] VITALS: BP 102/61
[2017-12-01] MEDS: BALSAM PERU/CASTOR OIL 60 GM TUBE TP SCH (09:00)
[2017-12-01 11:00] VITALS: BP 118/57
[2017-12-01] MEDS: ASPIRIN 81MG TAB.CHEW PO SCH (12:08)
[2017-12-01] MEDS: LACTOBACILLUS RHAMNOSUS GG 1 EACH CAP.SPRINK NG SCH ×2 (12:08→22:24)
[2017-12-01] MEDS: PREDNISONE 10 MG TABLET PO SCH (12:08)
[2017-12-01] MEDS: METOPROLOL TARTRATE 25 MG TAB PO SCH ×3 (12:08→22:24)
[2017-12-01] MEDS: PANTOPRAZOLE SODIUM 40 MG TABLET.DR PO SCH (12:08)
[2017-12-01] MEDS: TAMSULOSIN HCL 0.4 MG CAP.ER.24H PO SCH (12:09)
[2017-12-01 16:00] VITALS: BP 112/51
[2017-12-01] MEDS: ZINC OXIDE OINT 60GM TUBE TP SCH (17:26)
[2017-12-01] MEDS: CLOTRIMAZOLE 30 GM CREAM.GM. TP SCH (17:27)
[2017-12-01 19:00] VITALS: BP 118/69
[2017-12-01] MEDS: FLUCONAZOLE 200 MG/NS 100 ML 100 ML IV SCH (22:23)
[2017-12-02] VITALS: BP 113/57
[2017-12-02] MEDS: IPRATROPIUM/ALBUTEROL SULFATE 3 ML SOLUTION IH SCH ×6 (01:42→22:06)
[2017-12-02 04:00] VITALS: BP 128/70
[2017-12-02] MEDS: DEXTROSE 5%-WATER 1,000 ML IV SCH ×2 (04:27→14:13)
[2017-12-02] MEDS: BUDESONIDE 0.5 MG/2 ML INH IH SCH ×2 (05:58→18:32)
[2017-12-02 06:28] LABS: POTASSIUM 3.5 mmol/L (3.5-5.1)
[2017-12-02] MEDS: MAG HYDROX/AL HYDROX/SIMETH 30 ML, LIDOCAINE HCL 2% VISCOUS 30 ML, DIPHENHYDRAMINE HCL ... PO SCH ×18 (06:52→22:48)
[2017-12-02] MEDS: METOCLOPRAMIDE 5 MG TABLET PO SCH ×3 (06:52→22:42)
[2017-12-02] MEDS: INSULIN LISPRO 100 UNIT/ML 3ML SQ SCH ×4 (06:53→22:54)
[2017-12-02] MEDS: INSULIN GLARGINE 100 UNITS/ML 10 ML VIAL SQ SCH (06:59)
[2017-12-02 08:00] VITALS: BP 140/75
[2017-12-02 11:00] VITALS: BP 126/61
[2017-12-02] MEDS: SEVELAMER HCL 800 MG TABLET PO SCH ×3 (11:09→17:57)
[2017-12-02] MEDS: TAMSULOSIN HCL 0.4 MG CAP.ER.24H PO SCH (11:13)
[2017-12-02] MEDS: LACTOBACILLUS RHAMNOSUS GG 1 EACH CAP.SPRINK NG SCH ×2 (11:13→22:42)
[2017-12-02] MEDS: ASPIRIN 81MG TAB.CHEW PO SCH (11:14)
[2017-12-02] MEDS: METOPROLOL TARTRATE 25 MG TAB PO SCH ×3 (11:14→22:42)
[2017-12-02] MEDS: PANTOPRAZOLE SODIUM 40 MG TABLET.DR PO SCH (11:14)
[2017-12-02] MEDS: PREDNISONE 10 MG TABLET PO SCH (11:14)
[2017-12-02] MEDS: ZINC OXIDE OINT 60GM TUBE TP SCH (11:21)
[2017-12-02] MEDS: CLOTRIMAZOLE 30 GM CREAM.GM. TP SCH (11:21)
[2017-12-02] MEDS: BALSAM PERU/CASTOR OIL 60 GM TUBE TP SCH (11:23)
[2017-12-02] MEDS ORDERED: PRED20TA3 PO (14:53)
[2017-12-02] MEDS ORDERED: LEVO500T89 PO (14:54)
[2017-12-02 16:44] VITALS: BP 121/67
[2017-12-02 19:50] VITALS: BP 138/56
[2017-12-02] MEDS: FLUCONAZOLE 200 MG/NS 100 ML 100 ML IV SCH (22:42)
[2017-12-03] VITALS (7 sets, daily range): BP systolic 108–169; BP diastolic 55–83
[2017-12-03] MEDS: DEXTROSE 5%-WATER 1,000 ML IV SCH (01:33)
[2017-12-03] MEDS: IPRATROPIUM/ALBUTEROL SULFATE 3 ML SOLUTION IH SCH ×6 (01:38→23:00)
[2017-12-03 04:00] LABS: ALBUMIN 1.5 g/dL (3.5-5.0); CREATININE 2.6 mg/dL (0.5-1.5)
[2017-12-03 04:03] LABS: POTASSIUM 2.9 mmol/L (3.5-5.1)
[2017-12-03] MEDS: BUDESONIDE 0.5 MG/2 ML INH IH SCH ×2 (06:14→18:50)
[2017-12-03] MEDS: INSULIN LISPRO 100 UNIT/ML 3ML SQ SCH ×4 (06:16→21:52)
[2017-12-03] MEDS: MAG HYDROX/AL HYDROX/SIMETH 30 ML, LIDOCAINE HCL 2% VISCOUS 30 ML, DIPHENHYDRAMINE HCL ... PO SCH ×9 (06:24→17:08)
[2017-12-03] MEDS: METOCLOPRAMIDE 5 MG TABLET PO SCH ×3 (06:24→21:20)
[2017-12-03] MEDS: INSULIN GLARGINE 100 UNITS/ML 10 ML VIAL SQ SCH (07:30)
[2017-12-03] MEDS ORDERED: POTASSIUM CHLORIDE 20 MEQ ERTAB PO PRN (08:15)
[2017-12-03] MEDS ORDERED: POTASSIUM CHLORIDE 20MEQ/100ML 100 ML IV PRN (08:15)
[2017-12-03] MEDS ORDERED: LIDOCAINE HCL-MPF 1% 2ML VIAL IVP PRN (08:15)
[2017-12-03] MEDS ORDERED: POTASSIUM CHLORIDE 10% ELIXIR 20 MEQ/15 ML UDCUP ONE (08:36)
[2017-12-03] MEDS: PREDNISONE 10 MG TABLET PO SCH (12:49)
[2017-12-03] MEDS: ASPIRIN 81MG TAB.CHEW PO SCH (12:49)
[2017-12-03] MEDS: METOPROLOL TARTRATE 25 MG TAB PO SCH ×3 (12:49→20:56)
[2017-12-03] MEDS: TAMSULOSIN HCL 0.4 MG CAP.ER.24H PO SCH (12:49)
[2017-12-03] MEDS: PANTOPRAZOLE SODIUM 40 MG TABLET.DR PO SCH (12:50)
[2017-12-03] MEDS: LACTOBACILLUS RHAMNOSUS GG 1 EACH CAP.SPRINK NG SCH ×2 (12:50→20:56)
[2017-12-03] MEDS: SEVELAMER HCL 800 MG TABLET PO SCH ×3 (12:50→17:00)
[2017-12-03] MEDS: CLOTRIMAZOLE 30 GM CREAM.GM. TP SCH (16:10)
[2017-12-03] MEDS: ZINC OXIDE OINT 60GM TUBE TP SCH (16:10)
[2017-12-03] MEDS: BALSAM PERU/CASTOR OIL 60 GM TUBE TP SCH (16:11)
[2017-12-03] MEDS: POTASSIUM CHLORIDE 10% ELIXIR 20 MEQ/15 ML UDCUP PO PRN (17:10)
[2017-12-03] MEDS: FLUCONAZOLE 200 MG/NS 100 ML 100 ML IV SCH (20:56)
[2017-12-03] MEDS ORDERED: HYDROMORPHONE HCL 2 MG/ML VIAL ONE (21:18)
[2017-12-03] MEDS ORDERED: INSULIN LISPRO 100 UNIT/ML 3ML SQ ONE (21:49)
[2017-12-04] MEDS: MAG HYDROX/AL HYDROX/SIMETH 30 ML, LIDOCAINE HCL 2% VISCOUS 30 ML, DIPHENHYDRAMINE HCL ... PO SCH ×12 (00:02→18:00)
[2017-12-04] MEDS: IPRATROPIUM/ALBUTEROL SULFATE 3 ML SOLUTION IH SCH ×6 (02:24→22:14)
[2017-12-04 03:00] VITALS: BP 121/67
[2017-12-04] MEDS: INSULIN LISPRO 100 UNIT/ML 3ML SQ SCH ×4 (05:57→21:00)
[2017-12-04] MEDS: METOCLOPRAMIDE 5 MG TABLET PO SCH ×3 (06:09→21:06)
[2017-12-04] MEDS: INSULIN GLARGINE 100 UNITS/ML 10 ML VIAL SQ SCH (06:50)
[2017-12-04] MEDS: BUDESONIDE 0.5 MG/2 ML INH IH SCH ×2 (06:52→19:20)
[2017-12-04 07:00] VITALS: BP 121/69
[2017-12-04] MEDS: SEVELAMER HCL 800 MG TABLET PO SCH ×3 (08:00→18:32)
[2017-12-04] MEDS: ZINC OXIDE OINT 60GM TUBE TP SCH (09:00)
[2017-12-04] MEDS: CLOTRIMAZOLE 30 GM CREAM.GM. TP SCH (09:00)
[2017-12-04] MEDS: TAMSULOSIN HCL 0.4 MG CAP.ER.24H PO SCH (12:16)
[2017-12-04] MEDS: ASPIRIN 81MG TAB.CHEW PO SCH (12:17)
[2017-12-04] MEDS: LACTOBACILLUS RHAMNOSUS GG 1 EACH CAP.SPRINK NG SCH ×2 (12:18→21:04)
[2017-12-04] MEDS: PANTOPRAZOLE SODIUM 40 MG TABLET.DR PO SCH (12:18)
[2017-12-04] MEDS: PREDNISONE 10 MG TABLET PO SCH (12:19)
[2017-12-04] MEDS: METOPROLOL TARTRATE 25 MG TAB PO SCH ×3 (12:30→21:04)
[2017-12-04 12:39] VITALS: BP 95/46
[2017-12-04 16:00] VITALS: BP 127/68
[2017-12-04] MEDS: BALSAM PERU/CASTOR OIL 60 GM TUBE TP SCH (18:31)
[2017-12-04 19:35] VITALS: BP 126/60
[2017-12-04] MEDS: FLUCONAZOLE 200 MG/NS 100 ML 100 ML IV SCH (21:04)
[2017-12-05] MEDS ORDERED: HYDROMORPHONE HCL 2 MG/ML VIAL ONE (00:03)
[2017-12-05] MEDS: MAG HYDROX/AL HYDROX/SIMETH 30 ML, LIDOCAINE HCL 2% VISCOUS 30 ML, DIPHENHYDRAMINE HCL ... PO SCH ×12 (00:06→17:27)
[2017-12-05 00:30] VITALS: BP 129/75
[2017-12-05] MEDS: IPRATROPIUM/ALBUTEROL SULFATE 3 ML SOLUTION IH SCH ×6 (02:03→21:37)
[2017-12-05 04:02] VITALS: BP 141/71
[2017-12-05 04:04] LABS: CREATININE 2.1 mg/dL (0.5-1.5); POTASSIUM 3.5 mmol/L (3.5-5.1)
[2017-12-05] MEDS: INSULIN LISPRO 100 UNIT/ML 3ML SQ SCH ×3 (06:08→16:30)
[2017-12-05] MEDS: METOCLOPRAMIDE 5 MG TABLET PO SCH ×2 (06:08→14:56)
[2017-12-05] MEDS: POTASSIUM CHLORIDE 10% ELIXIR 20 MEQ/15 ML UDCUP PO PRN (06:09)
[2017-12-05] MEDS: BUDESONIDE 0.5 MG/2 ML INH IH SCH ×2 (07:02→18:15)
[2017-12-05 07:30] VITALS: BP 127/60
[2017-12-05] MEDS ORDERED: INSULIN GLARGINE 100 UNITS/ML 10 ML VIAL SQ SCH (07:30)
[2017-12-05] MEDS: SEVELAMER HCL 800 MG TABLET PO SCH ×3 (08:00→17:00)
[2017-12-05] MEDS: BALSAM PERU/CASTOR OIL 60 GM TUBE TP SCH (09:00)
[2017-12-05] MEDS: ZINC OXIDE OINT 60GM TUBE TP SCH (09:00)
[2017-12-05] MEDS: PANTOPRAZOLE SODIUM 40 MG TABLET.DR PO SCH (09:00)
[2017-12-05] MEDS: CLOTRIMAZOLE 30 GM CREAM.GM. TP SCH (09:00)
[2017-12-05] MEDS: METOPROLOL TARTRATE 25 MG TAB PO SCH ×2 (10:01→14:55)
[2017-12-05] MEDS: LACTOBACILLUS RHAMNOSUS GG 1 EACH CAP.SPRINK NG SCH (10:01)
[2017-12-05] MEDS: ASPIRIN 81MG TAB.CHEW PO SCH (10:01)
[2017-12-05] MEDS: PREDNISONE 10 MG TABLET PO SCH (10:02)
[2017-12-05] MEDS: TAMSULOSIN HCL 0.4 MG CAP.ER.24H PO SCH (10:02)
[2017-12-05 12:00] VITALS: BP 106/59
[2017-12-05] MEDS: COMPOUND PO MISCELLANEOUS 1 EACH MISC MISC PRN ×2 (12:14→17:27)
[2017-12-05 16:00] VITALS: BP 108/74
[2017-12-05 19:00] VITALS: BP 129/59
== END 2017-12-05 22:30 | DRG 870 ==
LOC: EDH 03:42 → OBSVTOIN 05:10 → EDHIP 05:10 → 2BH 14:40 → 2CH 11-20 05:45 → 2AH 11-22 15:46 → 3AH 11-28 15:37
PROVIDERS: ADMIT Family Medicine; ATTEND Family Medicine
PROC: 5A1955Z Respiratory Ventilation, Greater than 96 Consecutive Hours (ICD-10-PCS; principal; 2017-10-30)
PROC: 0BH17EZ Insertion of Endotracheal Airway into Trachea, Via Natural or Artificial Opening (ICD-10-PCS; 2017-10-30)
PROC: 05PY33Z Removal of Infusion Device from Upper Vein, Percutaneous Approach (ICD-10-PCS; 2017-10-30)
PROC: 05HP33Z Insertion of Infusion Device into Right External Jugular Vein, Percutaneous Approach (ICD-10-PCS; 2017-10-30)
PROC: 5A09357 Assistance with Respiratory Ventilation, Less than 24 Consecutive Hours, Continuous Positive Airway Pressure (ICD-10-PCS; 2017-10-30)
PROC: 5A09457 Assistance with Respiratory Ventilation, 24-96 Consecutive Hours, Continuous Positive Airway Pressure (ICD-10-PCS; 2017-10-30)
PROC: 5A09357 Assistance with Respiratory Ventilation, Less than 24 Consecutive Hours, Continuous Positive Airway Pressure (ICD-10-PCS; 2017-10-30)
PROC: 5A09357 Assistance with Respiratory Ventilation, Less than 24 Consecutive Hours, Continuous Positive Airway Pressure (ICD-10-PCS; 2017-10-30)
PROC: 5A09357 Assistance with Respiratory Ventilation, Less than 24 Consecutive Hours, Continuous Positive Airway Pressure (ICD-10-PCS; 2017-10-30)
PROC: 5A09357 Assistance with Respiratory Ventilation, Less than 24 Consecutive Hours, Continuous Positive Airway Pressure (ICD-10-PCS; 2017-10-30)
PROC: 5A09357 Assistance with Respiratory Ventilation, Less than 24 Consecutive Hours, Continuous Positive Airway Pressure (ICD-10-PCS; 2017-10-30)
PROC: 5A09357 Assistance with Respiratory Ventilation, Less than 24 Consecutive Hours, Continuous Positive Airway Pressure (ICD-10-PCS; 2017-10-30)
PROC: 5A09357 Assistance with Respiratory Ventilation, Less than 24 Consecutive Hours, Continuous Positive Airway Pressure (ICD-10-PCS; 2017-10-30)
PROC: 5A09357 Assistance with Respiratory Ventilation, Less than 24 Consecutive Hours, Continuous Positive Airway Pressure (ICD-10-PCS; 2017-10-30)
PROC: 5A09357 Assistance with Respiratory Ventilation, Less than 24 Consecutive Hours, Continuous Positive Airway Pressure (ICD-10-PCS; 2017-10-30)
PROC: 5A09357 Assistance with Respiratory Ventilation, Less than 24 Consecutive Hours, Continuous Positive Airway Pressure (ICD-10-PCS; 2017-10-30)
PROC: 5A09357 Assistance with Respiratory Ventilation, Less than 24 Consecutive Hours, Continuous Positive Airway Pressure (ICD-10-PCS; 2017-10-30)
PROC: B54MZZA Ultrasonography of Right Upper Extremity Veins, Guidance (ICD-10-PCS; 2017-10-30)
PROC: 05HY33Z Insertion of Infusion Device into Upper Vein, Percutaneous Approach (ICD-10-PCS; 2017-10-30)
PROC: 5A1D70Z Performance of Urinary Filtration, Intermittent, Less than 6 Hours Per Day (ICD-10-PCS; 2017-11-02)
PROC: 5A1D70Z Performance of Urinary Filtration, Intermittent, Less than 6 Hours Per Day (ICD-10-PCS; 2017-11-03)
PROC: 5A1D70Z Performance of Urinary Filtration, Intermittent, Less than 6 Hours Per Day (ICD-10-PCS; 2017-11-05)
PROC: 5A1D70Z Performance of Urinary Filtration, Intermittent, Less than 6 Hours Per Day (ICD-10-PCS; 2017-11-07)
PROC: 5A1D70Z Performance of Urinary Filtration, Intermittent, Less than 6 Hours Per Day (ICD-10-PCS; 2017-11-10)
PROC: 5A1D70Z Performance of Urinary Filtration, Intermittent, Less than 6 Hours Per Day (ICD-10-PCS; 2017-11-12)
PROC: 5A1D70Z Performance of Urinary Filtration, Intermittent, Less than 6 Hours Per Day (ICD-10-PCS; 2017-11-13)
DX: A41.9 Sepsis, unspecified organism (principal); N17.0 Acute kidney failure with tubular necrosis; J96.21 Acute and chronic respiratory failure with hypoxia; J11.00 Influenza due to unidentified influenza virus with unspecified type of pneumonia; J14 Pneumonia due to Hemophilus influenzae; G93.40 Encephalopathy, unspecified; A04.72 Enterocolitis due to Clostridium difficile, not specified as recurrent; J81.1 Chronic pulmonary edema; J16.8 Pneumonia due to other specified infectious organisms; N18.6 End stage renal disease; R65.21 Severe sepsis with septic shock; J96.22 Acute and chronic respiratory failure with hypercapnia; L89.93 Pressure ulcer of unspecified site, stage 3; E87.2 Acidosis; J45.901 Unspecified asthma with (acute) exacerbation; I12.0 Hypertensive chronic kidney disease with stage 5 chronic kidney disease or end stage renal disease; Z99.11 Dependence on respirator [ventilator] status; I47.1 Supraventricular tachycardia; I48.1 Persistent atrial fibrillation; I69.354 Hemiplegia and hemiparesis following cerebral infarction affecting left non-dominant side; I82.401 Acute embolism and thrombosis of unspecified deep veins of right lower extremity; K56.7 Ileus, unspecified; B37.0 Candidal stomatitis; E46 Unspecified protein-calorie malnutrition; E87.0 Hyperosmolality and hypernatremia; E87.1 Hypo-osmolality and hyponatremia; I13.2 Hypertensive heart and chronic kidney disease with heart failure and with stage 5 chronic kidney disease, or end stage renal disease; E11.22 Type 2 diabetes mellitus with diabetic chronic kidney disease; E66.01 Morbid (severe) obesity due to excess calories; E86.0 Dehydration; I48.91 Unspecified atrial fibrillation; Z99.2 Dependence on renal dialysis; M19.90 Unspecified osteoarthritis, unspecified site; M48.061 Spinal stenosis, lumbar region without neurogenic claudication; M54.16 Radiculopathy, lumbar region; M10.9 Gout, unspecified; B96.3 Hemophilus influenzae [H. influenzae] as the cause of diseases classified elsewhere; D64.9 Anemia, unspecified; E11.41 Type 2 diabetes mellitus with diabetic mononeuropathy; E11.51 Type 2 diabetes mellitus with diabetic peripheral angiopathy without gangrene; E11.65 Type 2 diabetes mellitus with hyperglycemia; Z68.34 Body mass index [BMI] 34.0-34.9, adult; E78.5 Hyperlipidemia, unspecified; E87.6 Hypokalemia; F41.9 Anxiety disorder, unspecified; G47.33 Obstructive sleep apnea (adult) (pediatric); I25.10 Atherosclerotic heart disease of native coronary artery without angina pectoris; I50.9 Heart failure, unspecified; J11.1 Influenza due to unidentified influenza virus with other respiratory manifestations; R62.7 Adult failure to thrive; Z74.01 Bed confinement status; Z85.72 Personal history of non-Hodgkin lymphomas; Z86.718 Personal history of other venous thrombosis and embolism; Z87.891 Personal history of nicotine dependence; Z91.19 Patient's noncompliance with other medical treatment and regimen; R13.10 Dysphagia, unspecified; K12.30 Oral mucositis (ulcerative), unspecified; L89.152 Pressure ulcer of sacral region, stage 2; J98.4 Other disorders of lung; E87.8 Other disorders of electrolyte and fluid balance, not elsewhere classified; Z28.21 Immunization not carried out because of patient refusal
CPT/HCPCS: 31500; 36415; 36556; 36580; 36600; 71045; 71046; 71250; 74018; 74230; 76770; 80048; 80053; 80061; 80069; 80202; 81001; 82040; 82330; 82435; 82550; 82553; 82728; 82803; 82947; 82948; 83036; 83540; 83605; 83690; 83735; 83874; 83880; 84100; 84132; 84295; 84484; 84520; 84550; 85007; 85018; 85025; 85027; 85610; 85730; 86701; 86704; 86706; 87040; 87046; 87071; 87088; 87116; 87186; 87205; 87206; 87324; 87340; 87390; 87520; 87804; 87880; 88313; 90935; 92610; 92611; 93005; 93306; 94002; 94003; 94640; 94644; 94660; 94664; 94667; 94668; 97039; A4218; A4330; A4344; C1752; C1769; C9113; J0282; J0360; J0692; J0696; J1170; J1200; J1450; J1644; J1815; J1885; J1940; J1956; J2060; J2185; J2270; J2370; J2405; J2543; J2704; J2920; J2930; J3010; J3370; J3480; J3490; J7030; J7040; J7060; J7070; J7512; P9046

== ENCOUNTER → 2018-11-04 | Outpatient (CLI) | payer OTHER ==
[~2018-11-04] MED LIST changes: +METF-444 PO; -METF500T6 PO
--- NOTE | 2018-11-04 11:15 | NUR ---
MBSS COMPLETE. NO ASPIRATION OR PENETRATION AT THE TIME OF THE MBSS. RECOMMEND MECHANICAL SOFT/CHOPPED, THIN LIQUIDS; PILLS WHOLE WITH LIQUIDS. PATIENT INFORMATION: Pt IS A 63 Y.O. MALE REFERRED FOR AN MBSS SECONDARY TO COMPLAINS OF DIFFICULTY SWALLOWING. Pt AAOX3 AND COOPERATIVE DURING MBSS. Pt PREVIOUSLY WITH DYSPHAGIA RESULTING IN RECOMMENDATIONS FOR PUDDING-THICK LIQUIDS, MECHANICAL SOFT (10/30/2017). THEREAFTER Pt PARTICIPATED IN THERAPEUTIC INTERVENTION FOR 6 MONTHS. Pt'S MEDICAL HISTORY IS SIGNIFICANT FOR ASTHMA, DM WITH NEUROPATHY, RENAL FAILURE STAGE 3, HYPERLIPIDEMIA, GOUT, ANNA, DEGENERATIVE JOINT DISEASE, HYPERTENSION, LUMBER SPINAL STENOSIS AND RIGHT GLUTEAL WOUND, AND HYPERTHYROIDISM. MBSS INTERVENTION: MILD-MODERATE PHARYNGEAL DYSPHAGIA CAUSED BY DECREASED TONGUE BASE RETRACTION, NARROWING WITHIN THE PHARYNX AT C5-C6, DECREASED PRESSURE GENERATION WITHIN THE PHARYNX E/B MULTIPLE SWALLOWS PER BOLUS, POOLING IN VALLECULAE (CLEARED WITH SPONTANEOUS RE-SWALLOW), POOLING IN PYRIFORM SINUS (CLEARED WITH LIQUID WASH AND MULTIPLE SWALLOWS) WITH NO ASPIRATION PRESENT DURING MBSS. TRIALS: 1. TSP PUREED 2. CUP SIP THIN LIQUIDS 3. TSP PUDDING 4. CUP SIP THIN LIQUIDS 5. TSP MIXED 6. COOKIE 7. CUP SIP THIN LIQUIDS RECOMMENDATIONS: 1. MECHANICAL SOFT/CHOPPED, THIN LIQUID DIET; PILLS WHOLE WITH LIQUIDS. 2. COMPENSATORY STRATEGIES: *SEATED AT 90 DEGREE ANGLE *NO STRAWS *RE-SWALLOW *ALTERNATE BITES AND SIPS 3. DYSPHAGIA THERAPY 3-5X WEEK TO IMPROVE SWALLOW FUNCTION IS RECOMMENDED AT THIS TIME. Pt/FAMILY EDUCATION: RESULTS AND RECOMMENDATIONS WERE VERBALLY STATED TO Pt AND . SKILLED SPEECH THERAPY INTERVENTION IS RECOMMENDED. G-CODES SWALLOWING: [id number] Addendum: 11/05/18 at 0910 by ABAD COOK [facility] Amended: Links added.
== END | disposition home or self-care (01) ==
LOC: RAH 11:30
PROVIDERS: ATTEND Otolaryngology Plastic Surgery within the Head & Neck
DX: R13.10 Dysphagia, unspecified (principal); R49.8 Other voice and resonance disorders
CPT/HCPCS: G8996; G8997; G8998; 74230; 92611

== ENCOUNTER → 2019-05-13 | Outpatient (CLI) | payer OTHER | END | disposition home or self-care (01) | LOC: SHCH 09:47 | PROVIDERS: ATTEND Internal Medicine Cardiovascular Disease | DX: I11.9 Hypertensive heart disease without heart failure (principal); I06.1 Rheumatic aortic insufficiency | CPT/HCPCS: 93306 ==

== ENCOUNTER 2019-05-28 05:53 | Day surgery (SDC) | payer OTHER ==
[2019-05-25 10:15] VITALS: BP 138/63
[2019-05-25 10:35] LABS: APPEARANCE,URINE CLEAR (CLEAR); BILIRUBIN,URINE NEGATIVE (NEGATIVE); COLOR,URINE YELLOW (YELLOW); GLUCOSE, URINE (UA) NEGATIVE (NEGATIVE); KETONES,URINE NEGATIVE (NEGATIVE); LEUKOCYTE ESTERASE ,URINE TRACE (NEGATIVE); NITRATE,URINE NEGATIVE (NEGATIVE); OCCULT BLOOD,URINE NEGATIVE (NEGATIVE); PROTEIN,URINE TRACE mg/dL (NEGATIVE); UROBILINOGEN,URINE 0.2 mg/dL (0.2-1.0)
[2019-05-25 10:40] LABS: BASOPHILS % (AUTO) 0.7 % (0.0-5.0); EOSINOPHILS % (AUTO) 5.6 % (0.0-8.0); HEMATOCRIT 40.4 % (42-54); LYMPHOCYTES % (AUTO) 50.4 % (21.0-51.0); MEAN CORPUSCULAR HEMOGLOBIN 29.7 pg (27.0-33.0); MEAN CORPUSCULAR HGB CONC 33.1 g/dL (32.0-36.0); MEAN CORPUSCULAR VOLUME 89.5 fL (79-99); MONOCYTES % (AUTO) 6.8 % (3.0-13.0); NEUTROPHILS % (AUTO) 36.5 % (40.0-77.0); PLATELET COUNT (AUTO) 177 K/uL (130-400); RED BLOOD CELL COUNT(AUTO) 4.51 MIL/uL (4.50-6.20); RED CELL DISTRIBUTION WIDTH 14.2 % (11.0-15.5); WHITE BLOOD COUNT (AUTO) 8.4 K/uL (4.8-10.8)
[2019-05-25 10:43] LABS: CREATININE 1.5 mg/dL (0.5-1.5); POTASSIUM 4.3 mmol/L (3.5-5.1)
[2019-05-25 10:48] LABS: INR 0.95 (0.85-1.15); PARTIAL THROMBOPLASTIN TIME 30.5 SEC (26.3-35.5)
[2019-05-25 10:55] LABS: BACTERIA,URINE Few /HPF (None Seen); SQUAMOUS EPITHELIAL CELL,UR 0-2 /HPF (0-2)
--- NOTE | 2019-05-27 14:36 | NUR ---
LABS ABNORMAL LABS REPORTED TO [place] DELA CRUZ/ DR Cipriano MACKENZIE, FURTHER ORDERS GIVEN AND WILL BE CARRIED OUT
[2019-05-28] VITALS (12 sets, daily range): BP systolic 115–144; BP diastolic 48–72
[~2019-05-28] VITALS: Ht 170.2 cm; Wt 83.7 kg
[~2019-05-28 05:53] MED LIST changes: +ALLO100T PO; -ALLO300T2 PO; +AMLO2.5T4 PO; +CALC-1009 PO; -GLIP5TAB11 PO; +IRON FERROUS PO; -LISI1TAB13 PO; -METF-444 PO; +MULT-1296 PO; +OMEGA PO; +SODIUM CHLORIDE 0.9% 1000ML 1,000 ML IV SCH; +[UNRECOGNIZED DRUG - OTHER] PO
[2019-05-28] MEDS ORDERED: SODIUM CHLORIDE 0.9% 1000ML 1,000 ML IV ONE (06:17)
[2019-05-28] MEDS ORDERED: LIDOCAINE HCL 1% 20 ML VIAL ONE (07:16)
[2019-05-28] MEDS ORDERED: BIVALIRUDIN 250 MG/VIAL IV ONE (07:16)
[2019-05-28] MEDS ORDERED: NITROGLYCERIN 5 MG/ML 10 ML VIAL IV ONE (07:17)
[2019-05-28] MEDS ORDERED: IOHEXOL 350 MG/ML 100ML INFUS..BTL IV ONE (07:17)
[2019-05-28] MEDS ORDERED: MIDAZOLAM HCL 1 MG/ML 2ML VIAL ONE (07:17)
[2019-05-28] MEDS ORDERED: IOHEXOL-350 50ML VIAL IV ONE (07:17)
[2019-05-28] MEDS ORDERED: FENTANYL CITRATE PF 50 MCG/1 ML 2ML VIAL ONE (07:17)
[2019-05-28] MEDS ORDERED: SODIUM CHLORIDE 0.9% 1000ML 1,000 ML IV SCH (08:09)
[2019-05-28] MEDS ORDERED: GLUCAGON 1MG KIT 1 MG ML IM PRN (08:15)
[2019-05-28] MEDS ORDERED: HYDRALAZINE HCL 20 MG/ML VIAL IV PRN (08:15)
[2019-05-28] MEDS ORDERED: DEXTROSE 50%-WATER 50 ML DISP.SYRIN IV PRN (08:15)
== END 2019-05-28 14:45 | disposition home or self-care (01) ==
LOC: DAH 05:53
PROVIDERS: ATTEND Internal Medicine Cardiovascular Disease
DX: I25.10 Atherosclerotic heart disease of native coronary artery without angina pectoris (principal); I35.0 Nonrheumatic aortic (valve) stenosis; I10 Essential (primary) hypertension; E05.90 Thyrotoxicosis, unspecified without thyrotoxic crisis or storm; E78.5 Hyperlipidemia, unspecified; Z79.899 Other long term (current) drug therapy; Z79.01 Long term (current) use of anticoagulants; Z98.890 Other specified postprocedural states; Z83.3 Family history of diabetes mellitus
CPT/HCPCS: 36415; 71045; 80048; 81001; 85025; 85610; 85730; 93005; 93454; A4606; C1894 ×2; J1644; J2250; J3010; J3490; J7030; Q9965; Q9967 ×2; 99156; 99157; J0583

== ENCOUNTER → 2019-09-29 | Outpatient (CLI) | payer OTHER ==
[~2019-09-29] MED LIST changes: +FURO20TA4 PO; +METO25 PO; +MULT-1289 PO; -MULT-1296 PO; +POTA10TA14 PO; -SODIUM CHLORIDE 0.9% 1000ML 1,000 ML IV SCH; +SYMBICORT IH
== END | disposition home or self-care (01) ==
LOC: RAH 13:17
PROVIDERS: ATTEND Neuromusculoskeletal Medicine & OMM
DX: G31.9 Degenerative disease of nervous system, unspecified (principal); I61.9 Nontraumatic intracerebral hemorrhage, unspecified
CPT/HCPCS: 70450

== ENCOUNTER → 2020-05-24 | Outpatient (CLI) | payer OTHER | END | disposition home or self-care (01) | LOC: SHCH 14:28 | PROVIDERS: ATTEND Internal Medicine Cardiovascular Disease | DX: I51.7 Cardiomegaly (principal); Z95.2 Presence of prosthetic heart valve | CPT/HCPCS: 93306 ==

== ENCOUNTER → 2023-01-28 | Outpatient (CLI) | payer OTHER | END | disposition home or self-care (01) | LOC: SHCH 10:00 | PROVIDERS: ATTEND Internal Medicine Cardiovascular Disease | DX: I87.2 Venous insufficiency (chronic) (peripheral) (principal); I73.9 Peripheral vascular disease, unspecified | CPT/HCPCS: 93925; 93970 ==

== ENCOUNTER → 2024-09-21 | Outpatient (CLI) | payer OTHER ==
[~2024-09-21] MED LIST changes: +AMLO-257 PO; -AMLO2.5T4 PO; +ASPI-1197 PO; -CALC-1009 PO; +CRAN500T4 PO; +EZET10TA48 PO; -FURO20TA4 PO; +GABA-529 PO; -IRON FERROUS PO; +LISI2.5T13 PO; -MULT-1289 PO; +OMEG-227 PO; -OMEGA PO; -POTA10TA14 PO; -SYMBICORT IH; -[UNRECOGNIZED DRUG - OTHER] PO
--- NOTE | 2024-09-22 07:05 | HMCSR ---
APPROVED REPORT EXAM: Two-dimensional and M-mode echocardiogram with Doppler and color Doppler. INDICATION ICD: Aortic valve disorders I35.0 Surgery/Intervention Valve Replacement: Type: AVR Date: 2018 CABG: Date: 2018 RISK FACTORS Hypertension Hyperlipidemia 2D Dimensions RVDd3.9 cmLVEF(%)54.5 (>50%)LVED Vol(simp.)114.0 mL IVSd1.0 (0.7-1.1cm)FS(%)28 %LVES Vol(simp.)46.0 mL LVDd4.8 (3.8-5.6cm)LA (2D)4.8 (1.6-4.0cm)LVEF(%, simp.)59 % PWd0.9 (0.7-1.1cm)LA ESV INDEX (BP)31.03 mL/m2 LVDs3.5 (2.5-4.0cm) Aortic Valve AoV Vmax1.7 m/Zahra Peak GR12.2 mmHgLVOT Vmax0.9 m/s AoV VTI0.4 mAo Mean GR7.2 mmHgLVOT VTI0.24 m Mitral Valve MV E Ntmc400.6 cm/sDECEL Gdsn527 ms MV A Vmax69.6 cm/s E/A ratio1.5 MR Max PG17 mmHg TDI E/E' Medial9.6 Pulmonary Valve PV Vmax0.9 m/sPV VTI0.21 mPV Mean GR2 mmHg PV Peak GR3.5 mmHgPI End Sola. Waqas 1.2 cm/s Tricuspid Valve TR Vmax2.6 m/sRAP (EST) 8 [id number] mmHg TR Peak GR26.6 mmHg Left Ventricle Left ventricular cavity size is normal. There is normal LV segmental wall motion. There is normal lef t ventricular wall thickness. LVEF is 55-60%. Indeterminate diastolic dysfunction. Right Ventricle The right ventricle is normal size. Right ventricular systolic function is reduced. Atria The left atrium size is normal. The right atrium size is normal. Aortic Valve Bioprosthetic aortic valve is present. Trivial aortic regurgitation. AV Dimensionless Index is 0.55 C alculated aortic valve maximum pressure gradient of 12.2 mmHg and mean pressure gradient of 7.2 mmHg. Mitral Valve Mitral annular calcification is mild. Mitral valve leaflets are sclerotic but open well. There is no mitral valve stenosis. Tricuspid Valve The tricuspid valve leaflets appear normal. There is trace tricuspid regurgitation. Right ventricular systolic pressure is estimated at 30-40 mmHg. Pulmonic Valve The pulmonic valve leaflets are thin and pliable; valve motion is normal. There is trace pulmonic eleazar vular regurgitation. Great Vessels The aortic root is not well visualized but is probably normal size. IVC is not well visualized. Pericardium No pericardial effusion. Conclusion LVEF is 55-60%. There is normal LV segmental wall motion. Bioprosthetic aortic valve is present. Calculated aortic valve maximum pressure gradient of 12.2 mmHg and mean pressure gradient of 7.2 mmHg . Mitral annular calcification is mild. Mitral valve leaflets are sclerotic but open well.
--- NOTE | 2024-09-22 07:09 | HMCSR ---
APPROVED REPORT Laterality: Bilateral VELOCITY AND DOPPLER WAVEFORM ANALYSIS GENERAL SCRAP WORKER (R) 139.8cm/sec, Biphasic, GENERAL SCRAP WORKER (L) 171.0cm/sec, Biphasic, Prof Fem Art. (R) 69.9cm/sec, Biphasic, Prof Fem Art. (L) 66.1cm/sec, Biphasic, Fem Art Prox. (R) 158.7cm/sec, Biphasic, Fem Art Prox. (L) 207.6cm/sec, Biphasic, Moderate > 50% Fem Art Mid. (R) 105.8cm/sec, Biphasic, Fem Art Mid. (L) 79.9cm/sec, Biphasic, Fem Art Dist (R) 160.6cm/sec, Biphasic, Fem Art Dist. (L) 89.7cm/sec, Biphasic, Pop Art(AK) (R) 120.9cm/sec, Biphasic, Pop Art (AK) (L) 130.5cm/sec, Biphasic, Pop Art (Fossa)(R) 120.9cm/sec, Biphasic, Pop Art (Fossa) (L) 158.3cm/sec, Monophasic, Pop Art(BK) (R) 115.2cm/sec, Biphasic, Pop Art (BK) (L) 46.9cm/sec, Monophasic, TIMBER POISONER Prox. (R) 33.8cm/sec, Biphasic, TIMBER POISONER Prox. (L) 24.8cm/sec, Monophasic, TIMBER POISONER Mid. (R) 48.3cm/sec, Biphasic, TIMBER POISONER Mid. (L) cm/sec, Occluded, TIMBER POISONER Dist. (R) 44.2cm/sec, Biphasic, TIMBER POISONER Dist. (L) cm/sec, Occluded, Per Art Dist. (R) cm/sec, Occluded, Per Art Dist. (L) 24.2cm/sec, Occluded, JOEY Prox. (R) 97.9cm/sec, Biphasic, JOEY Prox. (L) 46.2cm/sec, Monophasic, JOEY Mid. (R) 84.2cm/sec, Biphasic JOEY Mid. (L) 31.7cm/sec, Monophasic, JOEY Dist. (R) 55.9cm/sec, Biphasic, JOEY Dist. (L) 25.5cm/sec, Monophasic, Technologist Impression Diffuse atherosclerosis throughout the bilateral lower extremities. There is evidence of moderate stenosis in the left femoral artery and mild stenosis in the left popli teal artery. The right peroneal artery appears occluded. 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
== END | disposition home or self-care (01) ==
LOC: SHCH 08:47
PROVIDERS: ATTEND Internal Medicine Cardiovascular Disease
DX: I08.0 Rheumatic disorders of both mitral and aortic valves (principal); I70.293 Other atherosclerosis of native arteries of extremities, bilateral legs; I11.9 Hypertensive heart disease without heart failure; E78.5 Hyperlipidemia, unspecified; Z95.1 Presence of aortocoronary bypass graft; Z95.3 Presence of xenogenic heart valve
CPT/HCPCS: 93306; 93925